=== PATIENT | female | born 1960 | race Caucasian/White ===

== ENCOUNTER 2016-08-24 16:58 | Emergency (ER) | payer BC, OTHER ==
[~2016-08-24 16:58] MED LIST: AMBI10TA PO; AMIT25TA PO; CO Q PO; DULE200A IN; LEVOTAB10 PO; METO25TAB PO; SIMV20TA2 PO; VITMTA PO
[2016-08-24] MEDS ORDERED: HYDROmorphone HCL 1 MG/ML SYRINGE (J1170) As Ordered ONE (18:39)
[2016-08-24] MEDS ORDERED: methylPREDNISolone INJ 125 MG/2 ML VIAL (J2930) As Ordered ONE (18:40)
[2016-08-24] MEDS ORDERED: METHOCARBAMOL 500 MG TAB As Ordered ONE ×2 (18:40→21:00)
[2016-08-24] MEDS ORDERED: ONDANSETRON 4MG/2ML VIAL (J2405) As Ordered ONE (18:47)
--- NOTE | 2016-08-24 20:20 | REPUSA ---
CLINICAL HISTORY: Back pain. TECHNIQUE: Fast spin echo T2 and spin echo T1 sequences were obtained in axial and sagittal planes. FINDINGS: The visualized osseous elements are intact with no evidence of fracture or spondylolisthesis. The mar row signals are within normal limits. There is straightening of normal lordotic curvature, compatible with muscle spasm. The conus medullaris and cauda equina are within normal limits. There is evidence of mild multilevel disc dehydration. Evaluation of individual levels reveals the following: At L5-S1, broad based disk bulge is present. Canal and neural foramina remain patent. At L4-L5, broad based disk bulge is present. Canal and neural foramina are mildly narrowed. Hypertro phic facet disease and ligamentum hypertrophy contribute. At L3-L4, there is no disk herniation or bulge. Canal and neural foramina are mildly narrowed. Hyper trophic facet disease and ligamentum hypertrophy contribute. At L2-L3, there is no disk herniation or bulge. Canal and neural foramina remain patent. At L1-L2, there is no disk herniation or bulge. Canal and neural foramina remain patent. IMPRESSION: 1. Straightening of normal lordotic curvature, compatible with muscle spasm. 2. At L5-S1, broad based disk bulge is present. Canal and neural foramina remain patent. 3. At L4-L5, broad based disk bulge is present. Canal and neural foramina are mildly narrowed. Hyper trophic facet disease and ligamentum hypertrophy contribute. 4. At L3-L4, there is no disk herniation or bulge. Canal and neural foramina are mildly narrowed. Hy pertrophic facet disease and ligamentum hypertrophy contribute. Thank you for your kind referral of this patient.
--- NOTE | 2016-08-24 21:08 | EDDOCDS ---
Physician Documentation [facility] Name: Radha Olmos Age: 56 yrs Sex: Female : 1960 Arrival Date: 08/24/2016 Time: 16:58 Bed I6 / 28 Private MD: Porter Mcneil P. Disposition: 08/24/16 20:57 Discharged to Home/Self Care. Impression: Intervertebral disc disorders with myelopathy, lumbar region. - Condition is Stable. - Discharge Instructions: Herniated Disk. - Prescriptions for Medrol (Nawaf) 4 mg Oral Tablets, Dose Pack - take 1 Pack by ORAL route as directed - follow package instructions; 1 packet. Robaxin 500 mg Oral Tablet - take 2 tablet by ORAL route every 6 hours As needed; 40 tablet. - Medication Reconciliation, Local Pharmacy Hours form. - Follow up: Mayo Ng; When: 2 - 3 days; Reason: Recheck today's complaints, Continuance of care. - Problem is new. - Symptoms have improved. - Notes: CONTINUE WITH ROBAXIN AND OXYCODONE AT HOME, STOP FLEXERIL,USE MEDROL INSTRUCTED, FOLLOW UP WITH DR NG, RETURN TO THE ER IF THE SYMPTOMS WORSEN OR BECOME CONCERNING Historical: - Allergies: Codeine Sulfate; NSAIDS; PENICILLINS; Demerol; Mevacor; Chantix; Wellbutrin; - Home Meds: 1. amitriptyline 25 mg Oral tab 1 tab once daily 2. Flexeril 10 mg Oral tab 1 tab as needed 3. Lopressor 50 mg Oral tab once daily 4. simvastatin 20 mg Oral tab 1 tab once daily 5. levocetirizine 5 mg oral tab 1 tab once daily 6. 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 No barriers to communication noted, The patient speaks fluent Ukrainian, Speaks appropriately for age. - Family history: Not pertinent. - : The pt / caregiver states he / she is not on anticoagulants. Home medication list is obtained from the patient. - Exposure Risk Screening:: None identified. COPY MESSENGER: 08/24 17:12 LMP N/A - Post-menopause kc3 Vital Signs: 17:00 BP 146 / 89; Pulse 82; Resp 18; Temp 97.2(O); Pulse Ox 100% on R/A; Weight 66.68 kg / lr2 147 lbs (R); Height 5 ft. 9 in. (175.26 cm) (R); Pain 8/10; 19:13 BP 171 / 81; Pulse 85; Resp 16; Pulse Ox 99% ; ajs 20:58 BP 144 / 80; Pulse 85; Resp 18; Temp 97.8; Pulse Ox 98% ; Pain 7/10; ajs 17:00 Body Mass Index 21.71 (66.68 kg, 175.26 cm) lr2 MDM: 18:19 IV Saline Lock ordered. ck7 18:19 Dilaudid - HYDROmorphone 1 mg IVP once ordered. ck7 18:19 Methocarbamol 1 grams PO once ordered. ck7 18:19 Solu-MEDROL 125 mg IVP once ordered. ck7 18:19 MRI Screening Tool - Place on chart, inform RN ordered. ck7 18:20 -MRI-Spine, Lumbar without contrast Ordered. EDMS 18:26 MRI Screening Tool - Place on chart, inform RN complete. dem1 18:46 Ondansetron 4 mg IVP once ordered. [facility] 18:53 Financial registration complete. ks16 19:09 [facility] Payment Agreement was scanned into [employer] and attached to record. ks16 20:56 Methocarbamol 1 grams PO once; DISPENSE TO GO HOME WITH ordered. ck7 20:58 ED course: PATIENT OFFERED RECTAL EXAM TO ASSESS RECTAL TONE, PT REFUSED, STATES SHE ck7 DOES NOT HAVE ANY PROBLEMS WITH HER RECTUM, MAIKEL WILBURN FILM CLEANER PRESENT WHEN PATIENT REFUSED RECTAL EXAM. Administered Medications: 18:58 Drug: Dilaudid - HYDROmorphone 1 mg [hydromorphone 1 mg/mL injection syringe (1 mL)] [facility] Route: IVP; Site: left antecubital; 18:58 Drug: Methocarbamol 1 grams [methocarbamol 500 mg tablet (2 tabs)] Route: PO; [facility] 18:58 Drug: Solu-MEDROL 125 mg [Solu-Medrol 500 mg intravenous solution (125 mg)] Route: IVP; [facility] Site: left antecubital; 18:58 Drug: Ondansetron 4 mg Route: IVP; Site: left antecubital; [facility] 20:55 CANCELLED (Other Intervention Used): Diazepam 2 mg IVP once :55 CANCELLED (Patient Refused; PT STATES THAT SHE HAS THE MEDICATION AT HOME): oxyCODONE-acetaminophen 5 mg-325 mg 1 tabs PO once 21:04 Drug: Methocarbamol 1 grams [methocarbamol 500 mg tablet (2 tabs)] Route: PO; ko2 21:04 Follow up: Response: Med's dispensed home ko2 Signatures: Dispatcher [employer] EDMS Ramy Roxiyoanna [email or web address] Yesi Herring RN RN [facility] Porter Pierce RPA-C RPA-Cck7 Leah Cardenas RN RN ko2 Kathie Redmond RN RN kc3 Shweta Abrams, Reg Reg ks16 The chart was reviewed and I authenticate all verbal orders and agree with the evaluation and treatment provided.Corrections: (The following items were deleted from the chart) 20:55 20:29 Diazepam 2 mg IVP once ordered. 20:55 20:48 oxyCODONE-acetaminophen 5 mg-325 mg 1 tabs PO once ordered. Attachments: 19:09 [facility] Payment Agreement [email or web address] MTDD
--- NOTE | 2016-08-24 21:08 | EDDOCDS ---
Nurse's Notes [facility] Name: Radha Olmos Age: 56 yrs Sex: Female : 1960 Arrival Date: 08/24/2016 Time: 16:58 Bed I6 / 28 Private MD: Porter Mcneil P. Diagnosis: Intervertebral disc disorders with myelopathy, lumbar region Presentation: 08/24 17:05 Presenting complaint: Patient states: lower back pain x 3 days with no relief with kc3 Percocet at home. Acute neurological deficits are not present. Mechanism of Injury: No Mechanism of Injury. Adult Sepsis Screening: The patient does not have new or worsening altered mentation. Patient's respiratory rate is less than 22. Systolic blood pressure is greater than 100. Patient has a qSOFA score of 0- Negative Sepsis Screen. Suicide/Homicide risk assessment- the patient denies having any suicidal and/or homicidal ideations and does not present with any other emotional, behavioral or mental health complaints. 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 Transition of care: patient was not received from another setting of care. 17:05 Acuity: SANTOS Level 4 kc3 17:05 Method Of Arrival: Walkin/Carried/Asstd kc3 Triage Assessment: 17:11 General: Appears in no apparent distress, comfortable. Pain: Location: back Pain kc3 currently is 9 out of 10 on a pain scale. HIV screening NA for this visit Offered previously. Musculoskeletal: Circulation, motion, and sensation intact Reports pain in back. [facility]: 17:12 LMP N/A - Post-menopause kc3 Historical: - Allergies: Codeine Sulfate; NSAIDS; PENICILLINS; Demerol; Mevacor; Chantix; Wellbutrin; - Home Meds: 1. amitriptyline 25 mg Oral tab 1 tab once daily 2. Flexeril 10 mg Oral tab 1 tab as needed 3. Lopressor 50 mg Oral tab once daily 4. simvastatin 20 mg Oral tab 1 tab once daily 5. levocetirizine 5 mg oral tab 1 tab once daily 6. 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 No barriers to communication noted, The patient speaks fluent Guinean, Speaks appropriately for age. - Family history: Not pertinent. - : The pt / caregiver states he / she is not on anticoagulants. Home medication list is obtained from the patient. - Exposure Risk Screening:: None identified. Screenin:59 Screening information is obtained from the patient. Fall risk: No risks identified. cj Assistance ADL's: requires no assistance with activities of daily living. Abuse/DV Screen: The patient / caregiver reports he/she is: not in a situation that causes fear, pain or injury. Nutritional screening: No deficits noted. Advance Directives: There is no active DNR order. home support is adequate. Assessment: 18:59 General: Appears slender, uncomfortable, Behavior is cooperative. Pain: Location: back cjh and pelvis Pain currently is 10 out of 10 on a pain scale. Neurological: Level of Consciousness is awake, alert, Oriented to person, place, time. Respiratory: Airway is patent Respiratory effort is even, unlabored, Respiratory pattern is regular, symmetrical. GI: No deficits noted. Derm: Skin is pink, warm & dry. Musculoskeletal: Range of motion intact in all extremities. 19:20 General: escorted to MRI by ECOMMERCE ANALYST. [facility] 21:04 General: Appears in no apparent distress, Behavior is cooperative. Pain: Location: ko2 back. Neurological: Level of Consciousness is awake, alert, Oriented to person, place, time. Respiratory: Airway is patent Respiratory effort is even, unlabored, Respiratory pattern is regular, symmetrical. Derm: Skin is pink, warm & dry. Vital Signs: 17:00 BP 146 / 89; Pulse 82; Resp 18; Temp 97.2(O); Pulse Ox 100% on R/A; Weight 66.68 kg lr2 (R); Height 5 ft. 9 in. (175.26 cm) (R); Pain 8/10; 19:13 BP 171 / 81; Pulse 85; Resp 16; Pulse Ox 99% ; ajs 20:58 BP 144 / 80; Pulse 85; Resp 18; Temp 97.8; Pulse Ox 98% ; Pain 7/10; ajs 17:00 Body Mass Index 21.71 (66.68 kg, 175.26 cm) lr2 Vitals: 17:00 Log In Time: August 24, 2016 at 16:58. lr2 ED Course: 17:00 Patient visited by Jaci Guevara. lr2 17:00 Patient moved to Waiting lr2 17:01 Porter Mcneil is Private Physician. lr2 17:01 Patient moved to Pre RCE lr2 17:06 Triage Initiated kc3 17:23 Patient moved to Triage 1 mlb1 18:09 [facility] ck7 18:09 Rajan Beth MD is Attending Physician. ck7 18:09 Patient visited by Porter Pierce RPA-C. ck7 18:16 Patient moved to I6 / 28 mlb1 18:39 Patient visited by Porter Pierce RPA-C. ck7 18:59 The patient / caregiver is instructed regarding the plan of care and ED course. Patient [facility] has correct armband on for positive identification. Placed in gown. Bed in low position. Call light in reach. Pulse ox on. 18:59 Inserted saline lock: 20 gauge in left antecubital area. [facility] 19:09 [facility] Payment Agreement was scanned into [employer] and attached to record. ks16 19:14 Patient visited by Lay Pope. ajs 20:04 Patient visited by Porter Pierce RPA-C. ck7 20:06 Patient visited by Lay Pope. ajs 20:36 Patient visited by Porter Pierce RPA-C. ck7 20:55 Notified physician's portfolio assistant of This inspector automatic typewriter accompanied NATHAN Pierce into room to s perform rectal exam. Pt refused to have the rectal exam. 20:56 Patient visited by Lya Pope. ajs 20:57 Mayo Soto is Referral Physician. ck7 20:57 -MRI-Spine, Lumbar without contrast Returned. EDMS 20:59 Patient visited by Lay Pope. ajs 21:05 Discontinued lock intact, bleeding controlled, pressure dressing applied, No ko2 redness/swelling at site. No procedures done that require assistance. Administered Medications: 18:58 Drug: Dilaudid - HYDROmorphone 1 mg [hydromorphone 1 mg/mL injection syringe (1 mL)] [facility] Route: IVP; Site: left antecubital; 18:58 Drug: Methocarbamol 1 grams [methocarbamol 500 mg tablet (2 tabs)] Route: PO; [facility] 18:58 Drug: Solu-MEDROL 125 mg [Solu-Medrol 500 mg intravenous solution (125 mg)] Route: IVP; [facility] Site: left antecubital; 18:58 Drug: Ondansetron 4 mg Route: IVP; Site: left antecubital; [facility] 20:55 CANCELLED (Other Intervention Used): Diazepam 2 mg IVP once ck 20:55 CANCELLED (Patient Refused; PT STATES THAT SHE HAS THE MEDICATION AT HOME): ck7 oxyCODONE-acetaminophen 5 mg-325 mg 1 tabs PO once 21:04 Drug: Methocarbamol 1 grams [methocarbamol 500 mg tablet (2 tabs)] Route: PO; ko2 21:04 Follow up: Response: Med's dispensed home ko2 Order Results: Radiology Order: -MRI-Spine, Lumbar without contrast Test: -MRI-Spine, Lumbar without contrast REASON FOR EXAMINATION: LOW BACK PAIN; ; CLINICAL HISTORY: Back pain.; TECHNIQUE: Fast spin echo T2 and spin echo T1 sequences were obtained in axial and sagittal planes.; FINDINGS:; The visualized osseous elements are intact with no evidence of fracture or spondylolisthesis. The mar; row signals are within normal limits. There is straightening of normal lordotic curvature, compatible; with muscle spasm. The conus medullaris and cauda equina are within normal limits.; There is evidence of mild multilevel disc dehydration.; Evaluation of individual levels reveals the following:; At L5-S1, broad based disk bulge is present. Canal and neural foramina remain patent.; At L4-L5, broad based disk bulge is present. Canal and neural foramina are mildly narrowed. Hypertro; phic facet disease and ligamentum hypertrophy contribute.; At L3-L4, there is no disk herniation or bulge. Canal and neural foramina are mildly narrowed. Hyper; trophic facet disease and ligamentum hypertrophy contribute.; At L2-L3, there is no disk herniation or bulge. Canal and neural foramina remain patent.; At L1-L2, there is no disk herniation or bulge. Canal and neural foramina remain patent.; IMPRESSION:; 1. Straightening of normal lordotic curvature, compatible with muscle spasm.; 2. At L5-S1, broad based disk bulge is present. Canal and neural foramina remain patent.; 3. At L4-L5, broad based disk bulge is present. Canal and neural foramina are mildly narrowed. Hyper; trophic facet disease and ligamentum hypertrophy contribute.; 4. At L3-L4, there is no disk herniation or bulge. Canal and neural foramina are mildly narrowed. Hy; pertrophic facet disease and ligamentum hypertrophy contribute.; Thank you for your kind referral of this patient.; ; Outcome: 20:57 Discharge ordered by Provider. ck7 21:06 Discharge Assessment: Patient awake, alert and oriented x 3. No cognitive and/or ko2 functional deficits noted. Patient verbalized understanding of disposition instructions. patient administered narcotics - no. The following High Risk Discharge criteria are identified: None. Discharged to home ambulatory. Condition: stable. Discharge instructions given to patient, Instructed on discharge instructions, follow up and referral plans. medication usage, Demonstrated understanding of instructions, medications, Pt was receptive of discharge instructions/ teaching. Prescriptions given X 2. MRI Study completed. Property sent home with patient. 21:06 Patient left the ED. ko2 Signatures: Dispatcher [employer] EDIL Ehsan Ryan RN RN mlb1 Lay Pope JaneRN RN cj Porter Pierce, RPA-C RPA-Cck7 Leah Cardenas RN RN ko2 Kathie Redmond RN RN kc3 Shweta Abrams, Reg Reg ks16 Jaci Guevara lr2 Corrections: (The following items were deleted from the chart) 20:06 19:13 BP 171 / ???; Pulse 81bpm; Resp 16bpm; Pulse Ox 99%; ajs vinay MTDD
--- NOTE | 2016-08-26 22:07 | EDDOCDS ---
Physician Documentation [facility] Name: Radha Olmos Age: 56 yrs Sex: Female : 1960 Arrival Date: 08/24/2016 Time: 16:58 Bed I6 / 28 Private MD: Porter Mcneil P. Disposition: 08/24/16 20:57 Discharged to Home/Self Care. Impression: Intervertebral disc disorders with myelopathy, lumbar region. - Condition is Stable. - Discharge Instructions: Herniated Disk. - Prescriptions for Medrol (Nawaf) 4 mg Oral Tablets, Dose Pack - take 1 Pack by ORAL route as directed - follow package instructions; 1 packet. Robaxin 500 mg Oral Tablet - take 2 tablet by ORAL route every 6 hours As needed; 40 tablet. - Medication Reconciliation, Local Pharmacy Hours form. - Follow up: Mayo Ng; When: 2 - 3 days; Reason: Recheck today's complaints, Continuance of care. - Problem is new. - Symptoms have improved. - Notes: CONTINUE WITH ROBAXIN AND OXYCODONE AT HOME, STOP FLEXERIL,USE MEDROL INSTRUCTED, FOLLOW UP WITH DR NG, RETURN TO THE ER IF THE SYMPTOMS WORSEN OR BECOME CONCERNING Historical: - Allergies: Codeine Sulfate; NSAIDS; PENICILLINS; Demerol; Mevacor; Chantix; Wellbutrin; - Home Meds: 1. amitriptyline 25 mg Oral tab 1 tab once daily 2. Flexeril 10 mg Oral tab 1 tab as needed 3. Lopressor 50 mg Oral tab once daily 4. simvastatin 20 mg Oral tab 1 tab once daily 5. levocetirizine 5 mg oral tab 1 tab once daily 6. 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 No barriers to communication noted, The patient speaks fluent Fijian, Speaks appropriately for age. - Family history: Not pertinent. - : The pt / caregiver states he / she is not on anticoagulants. Home medication list is obtained from the patient. - Exposure Risk Screening:: None identified. RE RECORDING MIXER: 08/24 17:12 LMP N/A - Post-menopause kc3 Vital Signs: 17:00 BP 146 / 89; Pulse 82; Resp 18; Temp 97.2(O); Pulse Ox 100% on R/A; Weight 66.68 kg / lr2 147 lbs (R); Height 5 ft. 9 in. (175.26 cm) (R); Pain 8/10; 19:13 BP 171 / 81; Pulse 85; Resp 16; Pulse Ox 99% ; ajs 20:58 BP 144 / 80; Pulse 85; Resp 18; Temp 97.8; Pulse Ox 98% ; Pain 7/10; ajs 17:00 Body Mass Index 21.71 (66.68 kg, 175.26 cm) lr2 MDM: 18:19 IV Saline Lock ordered. ck7 18:19 Dilaudid - HYDROmorphone 1 mg IVP once ordered. ck7 18:19 Methocarbamol 1 grams PO once ordered. ck7 18:19 Solu-MEDROL 125 mg IVP once ordered. ck7 18:19 MRI Screening Tool - Place on chart, inform RN ordered. ck7 18:20 -MRI-Spine, Lumbar without contrast Ordered. EDMS 18:26 MRI Screening Tool - Place on chart, inform RN complete. dem1 18:46 Ondansetron 4 mg IVP once ordered. [facility] 18:53 Financial registration complete. ks16 19:09 [facility] Payment Agreement was scanned into [employer] and attached to record. ks16 20:56 Methocarbamol 1 grams PO once; DISPENSE TO GO HOME WITH ordered. ck7 20:58 ED course: PATIENT OFFERED RECTAL EXAM TO ASSESS RECTAL TONE, PT REFUSED, STATES SHE ck7 DOES NOT HAVE ANY PROBLEMS WITH HER RECTUM, MAIKEL WILBURN SLOTS MANAGER PRESENT WHEN PATIENT REFUSED RECTAL EXAM. 08/25 08:31 T-Sheet-- Draft Copy was scanned into [employer] and attached to record. [facility] Administered Medications: 08/24 18:58 Drug: Dilaudid - HYDROmorphone 1 mg [hydromorphone 1 mg/mL injection syringe (1 mL)] [facility] Route: IVP; Site: left antecubital; 18:58 Drug: Methocarbamol 1 grams [methocarbamol 500 mg tablet (2 tabs)] Route: PO; [facility] 18:58 Drug: Solu-MEDROL 125 mg [Solu-Medrol 500 mg intravenous solution (125 mg)] Route: IVP; [facility] Site: left antecubital; 18:58 Drug: Ondansetron 4 mg Route: IVP; Site: left antecubital; [facility] 20:55 CANCELLED (Other Intervention Used): Diazepam 2 mg IVP once 20:55 CANCELLED (Patient Refused; PT STATES THAT SHE HAS THE MEDICATION AT HOME): 7 oxyCODONE-acetaminophen 5 mg-325 mg 1 tabs PO once 21:04 Drug: Methocarbamol 1 grams [methocarbamol 500 mg tablet (2 tabs)] Route: PO; ko2 21:04 Follow up: Response: Med's dispensed home ko2 Signatures: Dispatcher [employer] EDMS Chad Mccann Jane, RN RN [facility] Porter Pierce, ELIGIO-C RPA-Cck7 Leah Cardenas RN RN ko2 Kathie Redmond RN RN kc3 Shweta Abrams, Reg Reg oh16 [facility] The chart was reviewed and I authenticate all verbal orders and agree with the evaluation and treatment provided.Corrections: (The following items were deleted from the chart) 20:55 20:29 Diazepam 2 mg IVP once ordered. 20:55 20:48 oxyCODONE-acetaminophen 5 mg-325 mg 1 tabs PO once ordered. 7 7 Attachments: 19:09 [facility] Payment Agreement [email or web address] 08/25 08:31 T-Sheet-- Draft Copy [facility] Chart Complete MTDD
--- NOTE | 2016-08-26 22:07 | EDDOCDS ---
Nurse's Notes [facility] Name: Radha Olmos Age: 56 yrs Sex: Female : 1960 Arrival Date: 08/24/2016 Time: 16:58 Bed I6 / 28 Private MD: Porter Mcneil P. Diagnosis: Intervertebral disc disorders with myelopathy, lumbar region Presentation: 08/24 17:05 Presenting complaint: Patient states: lower back pain x 3 days with no relief with kc3 Percocet at home. Acute neurological deficits are not present. Mechanism of Injury: No Mechanism of Injury. Adult Sepsis Screening: The patient does not have new or worsening altered mentation. Patient's respiratory rate is less than 22. Systolic blood pressure is greater than 100. Patient has a qSOFA score of 0- Negative Sepsis Screen. Suicide/Homicide risk assessment- the patient denies having any suicidal and/or homicidal ideations and does not present with any other emotional, behavioral or mental health complaints. Status: Patient is not a dietary service aide or dependent. Transition of care: patient was not received from another setting of care. 17:05 Acuity: SANTOS Level 4 kc3 17:05 Method Of Arrival: Walkin/Carried/Asstd kc3 Triage Assessment: 17:11 General: Appears in no apparent distress, comfortable. Pain: Location: back Pain kc3 currently is 9 out of 10 on a pain scale. HIV screening NA for this visit Offered previously. Musculoskeletal: Circulation, motion, and sensation intact Reports pain in back. 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 amitriptyline 25 mg Oral tab 1 tab once daily 2. Flexeril 10 mg Oral tab 1 tab as needed 3. Lopressor 50 mg Oral tab once daily 4. simvastatin 20 mg Oral tab 1 tab once daily 5. levocetirizine 5 mg oral tab 1 tab once daily 6. 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 No barriers to communication noted, The patient speaks fluent Chinese, Speaks appropriately for age. - Family history: Not pertinent. - : The pt / caregiver states he / she is not on anticoagulants. Home medication list is obtained from the patient. - Exposure Risk Screening:: None identified. Screenin:59 Screening information is obtained from the patient. Fall risk: No risks identified. cj Assistance ADL's: requires no assistance with activities of daily living. Abuse/DV Screen: The patient / caregiver reports he/she is: not in a situation that causes fear, pain or injury. Nutritional screening: No deficits noted. Advance Directives: There is no active DNR order. home support is adequate. Assessment: 18:59 General: Appears slender, uncomfortable, Behavior is cooperative. Pain: Location: back cjh and pelvis Pain currently is 10 out of 10 on a pain scale. Neurological: Level of Consciousness is awake, alert, Oriented to person, place, time. Respiratory: Airway is patent Respiratory effort is even, unlabored, Respiratory pattern is regular, symmetrical. GI: No deficits noted. Derm: Skin is pink, warm & dry. Musculoskeletal: Range of motion intact in all extremities. 19:20 General: escorted to MRI by COLOR STRIPPER. [facility] 21:04 General: Appears in no apparent distress, Behavior is cooperative. Pain: Location: ko2 back. Neurological: Level of Consciousness is awake, alert, Oriented to person, place, time. Respiratory: Airway is patent Respiratory effort is even, unlabored, Respiratory pattern is regular, symmetrical. Derm: Skin is pink, warm & dry. Vital Signs: 17:00 BP 146 / 89; Pulse 82; Resp 18; Temp 97.2(O); Pulse Ox 100% on R/A; Weight 66.68 kg lr2 (R); Height 5 ft. 9 in. (175.26 cm) (R); Pain 8/10; 19:13 BP 171 / 81; Pulse 85; Resp 16; Pulse Ox 99% ; ajs 20:58 BP 144 / 80; Pulse 85; Resp 18; Temp 97.8; Pulse Ox 98% ; Pain 7/10; ajs 17:00 Body Mass Index 21.71 (66.68 kg, 175.26 cm) lr2 Vitals: 17:00 Log In Time: August 24, 2016 at 16:58. lr2 ED Course: 17:00 Patient visited by Jaci Guevara. lr2 17:00 Patient moved to Waiting lr2 17:01 Porter Mcneil is Private Physician. lr2 17:01 Patient moved to Pre RCE lr2 17:06 Triage Initiated kc3 17:23 Patient moved to Triage 1 mlb1 18:09 Porter Pierce RPA-C is PHCP. ck7 18:09 Rajan Beth MD is Attending Physician. ck7 18:09 Patient visited by Porter Pierce RPA-C. ck7 18:16 Patient moved to I6 / 28 mlb1 18:39 Patient visited by Porter Pierce RPA-C. ck7 18:59 The patient / caregiver is instructed regarding the plan of care and ED course. Patient [facility] has correct armband on for positive identification. Placed in gown. Bed in low position. Call light in reach. Pulse ox on. 18:59 Inserted saline lock: 20 gauge in left antecubital area. [facility] 19:09 [facility] Payment Agreement was scanned into [employer] and attached to record. ks16 19:14 Patient visited by Lay Pope. ajs 20:04 Patient visited by Porter Pierce RPA-C. ck7 20:06 Patient visited by Lay Pope. ajs 20:36 Patient visited by Porter Pierce RPA-C. ck7 20:55 Notified physician's retail store assistant of This automatic typewriter inspector accompanied NATHAN Pierce into room to s perform rectal exam. Pt refused to have the rectal exam. 20:56 Patient visited by Lay Pope. ajs 20:57 Mayo Soto is Referral Physician. ck7 20:57 -MRI-Spine, Lumbar without contrast Returned. EDMS 20:59 Patient visited by Lay Pope. ajs 21:05 Discontinued lock intact, bleeding controlled, pressure dressing applied, No ko2 redness/swelling at site. No procedures done that require assistance. 08/25 08:31 T-Sheet-- Draft Copy was scanned into [employer] and attached to record. seh Administered Medications: 08/24 18:58 Drug: Dilaudid - HYDROmorphone 1 mg [hydromorphone 1 mg/mL injection syringe (1 mL)] [facility] Route: IVP; Site: left antecubital; 18:58 Drug: Methocarbamol 1 grams [methocarbamol 500 mg tablet (2 tabs)] Route: PO; [facility] 18:58 Drug: Solu-MEDROL 125 mg [Solu-Medrol 500 mg intravenous solution (125 mg)] Route: IVP; [facility] Site: left antecubital; 18:58 Drug: Ondansetron 4 mg Route: IVP; Site: left antecubital; [facility] 20:55 CANCELLED (Other Intervention Used): Diazepam 2 mg IVP once ck7 20:55 CANCELLED (Patient Refused; PT STATES THAT SHE HAS THE MEDICATION AT HOME): ck7 oxyCODONE-acetaminophen 5 mg-325 mg 1 tabs PO once 21:04 Drug: Methocarbamol 1 grams [methocarbamol 500 mg tablet (2 tabs)] Route: PO; ko2 21:04 Follow up: Response: Med's dispensed home ko2 Order Results: Radiology Order: -MRI-Spine, Lumbar without contrast Test: -MRI-Spine, Lumbar without contrast REASON FOR EXAMINATION: LOW BACK PAIN; ; CLINICAL HISTORY: Back pain.; TECHNIQUE: Fast spin echo T2 and spin echo T1 sequences were obtained in axial and sagittal planes.; FINDINGS:; The visualized osseous elements are intact with no evidence of fracture or spondylolisthesis. The mar; row signals are within normal limits. There is straightening of normal lordotic curvature, compatible; with muscle spasm. The conus medullaris and cauda equina are within normal limits.; There is evidence of mild multilevel disc dehydration.; Evaluation of individual levels reveals the following:; At L5-S1, broad based disk bulge is present. Canal and neural foramina remain patent.; At L4-L5, broad based disk bulge is present. Canal and neural foramina are mildly narrowed. Hypertro; phic facet disease and ligamentum hypertrophy contribute.; At L3-L4, there is no disk herniation or bulge. Canal and neural foramina are mildly narrowed. Hyper; trophic facet disease and ligamentum hypertrophy contribute.; At L2-L3, there is no disk herniation or bulge. Canal and neural foramina remain patent.; At L1-L2, there is no disk herniation or bulge. Canal and neural foramina remain patent.; IMPRESSION:; 1. Straightening of normal lordotic curvature, compatible with muscle spasm.; 2. At L5-S1, broad based disk bulge is present. Canal and neural foramina remain patent.; 3. At L4-L5, broad based disk bulge is present. Canal and neural foramina are mildly narrowed. Hyper; trophic facet disease and ligamentum hypertrophy contribute.; 4. At L3-L4, there is no disk herniation or bulge. Canal and neural foramina are mildly narrowed. Hy; pertrophic facet disease and ligamentum hypertrophy contribute.; Thank you for your kind referral of this patient.; ; Outcome: 20:57 Discharge ordered by Provider. ck7 21:06 Discharge Assessment: Patient awake, alert and oriented x 3. No cognitive and/or ko2 functional deficits noted. Patient verbalized understanding of disposition instructions. patient administered narcotics - no. The following High Risk Discharge criteria are identified: None. Discharged to home ambulatory. Condition: stable. Discharge instructions given to patient, Instructed on discharge instructions, follow up and referral plans. medication usage, Demonstrated understanding of instructions, medications, Pt was receptive of discharge instructions/ teaching. Prescriptions given X 2. MRI Study completed. Property sent home with patient. 21:06 Patient left the ED. ko2 Signatures: Dispatcher [employer] EDNH Ehsan Ryan RN RN mlb1 Lay Pope Jane,RN RN Porter Mueller, RPA-C RPA-Cck7 Leah Cardenas RN RN ko2 Kathie Redmond,YULY RN haylie3 Shweta Abrams, Reg Reg ks16 Neha, Jaci Lopez2 Corrections: (The following items were deleted from the chart) 20:06 19:13 BP 171 / ???; Pulse 81bpm; Resp 16bpm; Pulse Ox 99%; ajs ajandie Chart Complete MTDD
--- NOTE | 2016-08-26 22:07 | EDDOCDS ---
[facility] Name: Radha Olmos Age: 56 yrs Sex: Female : 1960 Arrival Date: 08/24/2016 Time: 16:58 Bed I6 / 28 Private MD: Porter Mcneil P. Disposition: 08/24/16 20:57 Discharged to Home/Self Care. Impression: Intervertebral disc disorders with myelopathy, lumbar region. - Condition is Stable. - Discharge Instructions: Herniated Disk. - Prescriptions for Medrol ([place]awaf) 4 mg Oral Tablets, Dose Pack - take 1 Pack by ORAL route as directed - follow package instructions; 1 packet. Robaxin 500 mg Oral Tablet - take 2 tablet by ORAL route every 6 hours As needed; 40 tablet. - Medication Reconciliation, Local Pharmacy Hours form. - Follow up: Mayo Ng; When: 2 - 3 days; Reason: Recheck today's complaints, Continuance of care. - Problem is new. - Symptoms have improved. - Notes: CONTINUE WITH ROBAXIN AND OXYCODONE AT HOME, STOP FLEXERIL,USE MEDROL INSTRUCTED, FOLLOW UP WITH DR NG, RETURN TO THE ER IF THE SYMPTOMS WORSEN OR BECOME CONCERNING Historical: - Allergies: Codeine Sulfate; NSAIDS; PENICILLINS; Demerol; Mevacor; Chantix; Wellbutrin; - Home Meds: 1. amitriptyline 25 mg Oral tab 1 tab once daily 2. Flexeril 10 mg Oral tab 1 tab as needed 3. Lopressor 50 mg Oral tab once daily 4. simvastatin 20 mg Oral tab 1 tab once daily 5. levocetirizine 5 mg oral tab 1 tab once daily 6. 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 No barriers to communication noted, The patient speaks fluent Malawian, Speaks appropriately for age. - Family history: Not pertinent. - : The pt / caregiver states he / she is not on anticoagulants. Home medication list is obtained from the patient. - Exposure Risk Screening:: None identified. 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 9 in. (175.26 cm) (R); Pain 8/10; 19:13 BP 171 / 81; Pulse 85; Resp 16; Pulse Ox 99% ; ajs 20:58 BP 144 / 80; Pulse 85; Resp 18; Temp 97.8; Pulse Ox 98% ; Pain 7/10; ajs 17:00 Body Mass Index 21.71 (66.68 kg, 175.26 cm) lr2 MDM: 18:19 IV Saline Lock ordered. ck7 18:19 Dilaudid - HYDROmorphone 1 mg IVP once ordered. ck7 18:19 Methocarbamol 1 grams PO once ordered. ck7 18:19 Solu-MEDROL 125 mg IVP once ordered. ck7 18:19 MRI Screening Tool - Place on chart, inform RN ordered. ck7 18:20 -MRI-Spine, Lumbar without contrast Ordered. EDMS 18:26 MRI Screening Tool - Place on chart, inform RN complete. dem1 18:46 Ondansetron 4 mg IVP once ordered. [facility] 18:53 Financial registration complete. ks16 19:09 [facility] Payment Agreement was scanned into [employer] and attached to record. ks16 20:56 Methocarbamol 1 grams PO once; DISPENSE TO GO HOME WITH ordered. ck7 20:58 ED course: PATIENT OFFERED RECTAL EXAM TO ASSESS RECTAL TONE, PT REFUSED, STATES SHE ck7 DOES NOT HAVE ANY PROBLEMS WITH HER RECTUM, MAIKEL WILBURN DIRECTOR OF CASEWORK SERVICES PRESENT WHEN PATIENT REFUSED RECTAL EXAM. 08/25 08:31 T-Sheet-- Draft Copy was scanned into [employer] and attached to record. [facility] Administered Medications: 08/24 18:58 Drug: Dilaudid - HYDROmorphone 1 mg [hydromorphone 1 mg/mL injection syringe (1 mL)] [facility] Route: IVP; Site: left antecubital; 18:58 Drug: Methocarbamol 1 grams [methocarbamol 500 mg tablet (2 tabs)] Route: PO; [facility] 18:58 Drug: Solu-MEDROL 125 mg [Solu-Medrol 500 mg intravenous solution (125 mg)] Route: IVP; [facility] Site: left antecubital; 18:58 Drug: Ondansetron 4 mg Route: IVP; Site: left antecubital; [facility] 20:55 CANCELLED (Other Intervention Used): Diazepam 2 mg IVP once 20:55 CANCELLED (Patient Refused; PT STATES THAT SHE HAS THE MEDICATION AT HOME): 7 oxyCODONE-acetaminophen 5 mg-325 mg 1 tabs PO once 21:04 Drug: Methocarbamol 1 grams [methocarbamol 500 mg tablet (2 tabs)] Route: PO; ko2 21:04 Follow up: Response: Med's dispensed home ko2 Signatures: Dispatcher [employer] EDMS Chad Mccann Jane, RN RN [facility] Porter Pierce, ELIGIO-C RPA-Cck7 Leah Cardenas RN RN ko2 Kathie Redmond RN RN kc3 Shweta Abrams, Reg Reg ky16 [facility] The chart was reviewed and I authenticate all verbal orders and agree with the evaluation and treatment provided.Corrections: (The following items were deleted from the chart) 20:55 20:29 Diazepam 2 mg IVP once ordered. 20:55 20:48 oxyCODONE-acetaminophen 5 mg-325 mg 1 tabs PO once ordered. 7 7 Attachments: 19:09 [facility] Payment Agreement [email or web address] 08/25 08:31 T-Sheet-- Draft Copy [facility] Chart Complete MTDD
== END 2016-08-24 21:06 | disposition home or self-care (01) ==
LOC: M ED 16:58
DX: M54.9 Dorsalgia, unspecified (principal); E78.00 Pure hypercholesterolemia, unspecified; I47.1 Supraventricular tachycardia; M51.27 Other intervertebral disc displacement, lumbosacral region; Z72.0 Tobacco use; Z79.899 Other long term (current) drug therapy; Z88.5 Allergy status to narcotic agent; Z88.6 Allergy status to analgesic agent; Z88.0 Allergy status to penicillin; Z88.8 Allergy status to other drugs, medicaments and biological substances
CPT/HCPCS: 72148; 96374; 96375; 99284; J1170; J2405; J2930

== ENCOUNTER → 2017-03-07 | Outpatient (CLI) | payer BC, OTHER ==
--- NOTE | 2017-03-10 09:04 | REP ---
MRI CERVICAL SPINE WITHOUT CONTRAST, 03/07/2017. Clinical history: Neck pain. Sagittal T1, T2 and STIR images with axial T1 and T2 sequences provided. Normal cervical lordosis is slightly reduced. There is cervical spondylosis greatest at C4-5 through C6-7 with both anterior and posterior osteophytes suggested at C4-5 and C5-6. Spondylosis at C6-7. There is disc space narrowing at those levels but sparing the other cervical levels. Craniocervical junction shows ample subarachnoid space with no cerebellar tonsillar ectopia. Vertebral body heights and marrow signal normal except for some discogenic changes at the endplates at C5-6. At C2-3, there is no significant disc bulge or herniation and no spinal or foraminal stenosis. At C3-4, there is minimal disc bulge not causing any spinal stenosis. Foramina show some loss of perineural fat due to uncinate and facet spurs. At C4-5, there is posterior osteophytic ridging and associated disc bulge markedly thinning the subarachnoid space and causing central canal stenosis with AP canal diameter about 7.7 mm Foraminal encroachment bilaterally, left greater than right. At C5-6, posterior osteophytic ridging with paracentral disc protrusion. The AP canal diameter is only 7.1 mm. There is no subarachnoid space. Foramina encroachment bilaterally and severe due to uncinate and facet spurs. The cord is compressed at the C4-5 and C5-6 levels. At C6-7, broad-based disc bulge flattening ventral thecal sac with minimal cord compression. The AP canal diameter 1.7 mm. Foramina show encroachment bilaterally due to uncinate more than facet spurs. At C7-T1, there is a small central disc protrusion. The subarachnoid space is maintained. Foramina show ample room on the left and some loss of perineural fat without nerve root compression on the right. Impression: 1. Cervical spondylosis from C4-5 through C6-7 with disc bulges and protrusion causing spinal stenosis with some mild cord compression at these levels with foraminal encroachment bilaterally due to uncinate and facet spurs. Less spinal stenosis and foraminal encroachment at C3-4 and C7-T1. The cord shows no syrinx. Signed by Clovis Mullen MD 03/10/2017 03:39 P
== END ==
LOC: M RAD 17:10
PROVIDERS: ATTEND Physician Assistant Surgical
DX: M54.2 Cervicalgia (principal); M47.892 Other spondylosis, cervical region

== ENCOUNTER → 2017-05-06 | Outpatient (CLI) | payer OTHER ==
[~2017-05-06] MED LIST changes: +OXYC1TAB23 PO; +PRIN10TA PO; +PROAAER10 INH; +SOMA350T PO; +XANA0.25 PO
--- NOTE | 2017-05-19 00:28 | ECWPNPC ---
PATIENT NAME: SHERRI BUSH : 1960 GENDER: FEMALE VISIT DATE: 05/06/2017 DISCHARGE DATE: 05/06/17 1529 VISIT LOCKED DATE TIME: PHYSICIAN: CRUZITO CAST RESOURCE: CRUZITO CAST REASON FOR APPOINTMENT 1. LOW BACK AND LEG PAIN HISTORY OF PRESENT ILLNESS FALL RISK SCREENING: SCREENING :NO FALLS IN THE PAST YEAR 57 YEAR OLD FEMALE PATIENT WITH HISTORY OF CHRONIC LOW BACK PAIN. PATIENT DESCRIBES THE PAIN BURNING, SHARP ,STABBING, THROBBING, SHOOTING, WITH A PAIN SCORE OF 8/1-0.. PATIENT STATES THAT SITTING, STANDING, OR WALKING INCREASES THE PAIN THE MOST AT THIS TIME. PATIENT IS CURRENTLY USING SOMA AND PERCOCET PRESCRIBED BY HER PRIMARY CARE DOCTOR THAT SHE USES NEEDED. MRS. BUSH STATES THAT SHE TRIED TO AVOID USING THE MEDICATION MUCH POSSIBLE. PATIENT HAS USED GABAPENTIN IN THE PAST AND REPORTS HAVING A LOT OF ADVERSE SIDE EFFECTS FROM THE MEDICATION. PATIENT STATES THAT SQUATTING SOMETIMES RELIEVES SOME OF THE PATIENT'S PAIN. MRS. BUSH STATES THAT SHE HAS CONSULTED WITH A PHYSICAL THERAPIST AND DOES SOME EXERCISES AT HOME. PATIENT ALSO DOES YOGA TO STAY LIMBER AND TRY TO KEEP THE MUSCLES SPASMS DOWN. PATIENT REPORTS HAVING A NECK SURGERY IN THE FUTURE. PATIENT DENIES UNEXPLAINABLE WEIGHT LOSS, FEVER, CHILLS, NEW CHANGES ON HER URINARY OR BOWEL CONTROL. PAIN SCREENING: PATIENT HAS A COMPLAINT OF ACUTE OR CHRONIC PAIN :YES CURRENT MEDICATIONS TAKING LOPRESSOR 50 MG TABLET 1 TABLET WITH FOOD ORALLY DAILY TAKING PRINIVIL 10 MG TABLET 1 TABLET ORALLY BID TAKING ELAVIL 25 MG TABLET 1 TABLET ORALLY BEFORE BEDTIME TAKING SIMVASTATIN 20 MG TABLET 1 TABLET IN THE EVENING ORALLY BEFORE BEDTIME TAKING LEVOCETIRIZINE DIHYDROCHLORIDE 5 MG TABLET 1 TABLET IN THE EVENING ORALLY BEFORE BEDTIME TAKING CENTRUM SILVER ADULT 50+ - TABLET 1 TAB ORALLY DAILY TAKING XANAX 0.25 MG TABLET 1 TABLET ORALLY @ HS & PRN TAKING SUPER B COMPLEX 1 TAB ORALLY DAILY TAKING COQ-10 100 MG CAPSULE 1 CAPSULE WITH A MEAL ORALLY ONCE A DAY TAKING VITAMIN D3 1000 UNIT CAPSULE 1 CAPSULE ORALLY ONCE A DAY TAKING LUNESTA 2 MG TABLET 1 TABLET IMMEDIATELY BEFORE BEDTIME ORALLY ONCE A DAY TAKING PERCOCET 5-325 MG TABLET 1 TABLET ORALLY EVERY 4 HOURS NEEDED TAKING CARISOPRODOL 350 MG TABLET 1 TABLET NEEDED ORALLY FOUR TIMES A DAY TAKING ALBUTEROL SULFATE HFA 108 (90 BASE) MCG/ACT AEROSOL SOLUTION 2 PUFFS NEEDED INHALATION EVERY 4 HOURS NEEDED TAKING OMEPRAZOLE 40 MG CAPSULE DELAYED RELEASE 1 CAPSULE ORALLY BID PRN TAKING ZANTAC 300 MG TABLET 1 TABLET AT BEDTIME ORALLY BID PRN TAKING TYLENOL 500 MGS 1 TAB ORAL FOUR TIMES DAILY NEEDED TAKING SUDAFED 60 MG TABLET 1 TABLET NEEDED ORALLY EVERY 4 HOURS NEEDED TAKING MUCINEX D MAX STRENGTH 120-1200 MG TABLET EXTENDED RELEASE 12 HOUR 1 TABLET NEEDED ORALLY EVERY 12 HRS TAKING NICOTINE 21 MG/24HR PATCH 24 HOUR 1 PATCH TO SKIN TRANSDERMAL ONCE A DAY DISCONTINUED MELATONIN 3-10 MG TABLET 1 TAB(S) ORALLY QHS, PRN DISCONTINUED VICODIN 5-500 MG (ORTHO) TABLET 1 TABLET NEEDED FOR PAIN ORALLY EVERY 4-6 HRS PRN DISCONTINUED FLEXERIL 10 MG (ORTHO) TABLET 1 TABLET ORALLY THREE TIMES A DAY PRN DISCONTINUED LOPRESSOR 25 MG TABLET 1 TAB(S) ORALLY TWICE A DAY DISCONTINUED COLESTID 5 GM GRANULES 1 ORALLY ONCE A DAY DISCONTINUED LOVAZA 1 GM CAPSULE 2 CAPSULES ORALLY TWICE A DAY DISCONTINUED AMBIEN 10 MG TABLET 1 TAB(S) ORAL QHS PRN DISCONTINUED ZYRTEC 10 MG TABLET CHEWABLE 1 TABLET ORALLY PRN MEDICATION LIST REVIEWED AND RECONCILED WITH THE PATIENT PAST MEDICAL HISTORY HYPERLIPIDEMIA RIGHT KNEE PAIN SECONDARY TO ACL TEAR. SVT HYPERTENSION ASTHMA ALLERGIC RHINITIS STATIN INDUCED HEPATITIS LIVER LACERATION BACK PAIN ALLERGIES PENICILLIN (FOR ALLERGIES USE ONLY): ANAPHYLAXIS: ALLERGY CODEINE PHOSPHATE: ANAPHYLAXIS: ALLERGY TRANSPORT AGENT IN VACCINES: ANAPHYLAXIS: ALLERGY DEMEROL: INCREASED HOSTILITY/AGGRESSION: SIDE EFFECTS MORPHINE: CHEST FELT LIKE A SOLID BLOCK OF ICE: ALLERGY AMOXICILLIN: SEVERE BRONCHIAL SPASM: ALLERGY AUGMENTIN: SEVERE BRONCHIAL SPASM: ALLERGY ERYTHROMYCIN: SEVERE VOMITTING: SIDE EFFECTS CLINDAMYCIN: LIP AND TONGUE SWELLING: ALLERGY CELEBREX: INTESTINAL BLEEDING: SIDE EFFECTS MEVACORE: ELEVATED LIVER ENZYMES: SIDE EFFECTS ASPIRIN: SEVERE GERD: SIDE EFFECTS NSAIDS: SEVERE GERD: SIDE EFFECTS EFFEXOR: SEVERE TREMORS: SIDE EFFECTS WELBUTRIN: SEVERE MORBID THOUGHTS: SIDE EFFECTS BEE/WASP: ANAPHYLAXIS: ALLERGY CHANTIX: SUICIDAL THOUGHTS: SIDE EFFECTS SURGICAL HISTORY UTERINE ABLATION 2007 TONSILLECTOMY/ADENOIDECTOMY WITH BILATERAL EAR SURGERY 4 LIPOMAS REMOVED FROM LEFT CHEST WALL AND BREAST 03/2016 POLYP FOR CERVIX REMOVED 2007 FAMILY HISTORY FATHER: , HTN, CAD, DIAGNOSED WITH HEART DISEASE MOTHER: , DIAGNOSED WITH HYPERTENSION, HEART DISEASE SON(S): SVT PATERNAL GRAND FATHER: PATERNAL GRAND MOTHER: MATERNAL GRAND FATHER: HTN, CAD, CVA MATERNAL GRAND MOTHER: HTN, CAD, CVA MATERNAL UNCLE: DM 1 BROTHER(S) - HEALTHY. 1 SON(S) , 3 DAUGHTER(S) - HEALTHY. NO KNOWN H/O COLON/BREAST/OVARIAN/ENDOMETRIAL CANCERGRANDFATHER--CVAGRANDMOTHER--HEART DISEASEOLDEST HALF BROTHER--CVA. SOCIAL HISTORY GENERAL: TOBACCO USE ARE YOU A:FORMER SMOKER HOW LONG HAS IT BEEN SINCE YOU LAST SMOKED?3-6 MONTHS ALCOHOL SCREENING POINTS0 INTERPRETATIONNEGATIVE RECREATIONAL DRUG USE DENIES. 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 DIET: LOW FAT, LOW CHOLESTEROL. EXERCISE: YOGA, STRETCHING AND OCCASSIONAL HAND WEIGHTS. MARITAL STATUS: . PETS: 1 DOG, 1 CAT. HINDUISM [id number] QUAKER LANGUAGE TANZANIAN. 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 LEARNING BARRIERS / SPECIAL NEEDS BARRIERS TO LEARNING?NO HEARING IMPAIRED?YES VISION IMPAIRED?YES :CORRECTIVE LENSES COGNITIVELY IMPAIRED?NO READINESS TO LEARN?YES LEARNING PREFERENCES?YES :TAPES/VIDEOS, HANDOUTS, DEMONSTRATION/VERBAL INSTRUCTION LEARNING CAPABILITIES PRESENT?YES EMOTIONAL BARRIERS?NO SPECIAL DEVICES?NO PRESIDENT/GM PRODUCTION & LIVE EXPERIENCES NEEDED?NO PAIN CLINIC PFS, CLERGY, PUBLIC HEALTH REFERRALS PFS REFERRAL NEEDED?NO CLERGY REFERRAL NEEDED?NO PUBLIC HEALTH REFERRAL NEEDED?NO HAS THE PATIENT BEEN EDUCATED REGARDING HIS/HER PLAN OF CARE?YES HAS THE PATIENT BEEN EDUCATED REGARDING PAIN, THE RISK FOR PAIN, THE IMPORTANCE OF EFFECTIVE PAIN MANAGEMENT, AND THE PAIN ASSESSMENT PROCESS?YES ADVANCE DIRECTIVES HEALTH CARE PROXY?NO WOULD YOU LIKE MORE INFORMATION?NO DO YOU HAVE A DNR?NO WOULD YOU LIKE MORE INFORMATION?NO LIVING WILL?NO WOULD YOU LIKE MORE INFORMATION?NO POWER OF MARINE ENGINE MECHANIC?NO WOULD YOU LIKE MORE INFORMATION?NO HOUSING: OWNS HOME. DOMESTIC VIOLENCE DO YOU FEEL SAFE IN YOUR ENVIRONMENT?YES HOSPITALIZATION/MAJOR DIAGNOSTIC PROCEDURE NO HOSPITALIZATION HISTORY. REVIEW OF SYSTEMS REVIEWED BY: PROVIDER: CRUZITO CAST MD . CONSTITUTIONAL: ANY CHANGE IN YOUR MEDICAL CONDITION? NO . CHILLS NO . FEVER NO . INFECTION: DO YOU HAVE NEW INFECTIONS? NO . DO YOU HAVE HISTORY OF MRSA? NO . MUSCULOSKELETAL: ANY NEW PATTERNS OF PAIN OR NUMBNESS? NO . SYTEMIC LUPUS NO . GASTROENTEROLOGY: ANY NEW CHANGE IN BOWEL CONTROL? NO . BARRETTS ESOPHAGUS NO . CIRRHOSIS NO . HEPATITIS NO . LIVER FAILURE NO . ACID REFLUX YES . UNEXPLAINED WEIGHT LOSS NO . GENITOURINARY: ANY NEW CHANGE IN BLADDER CONTROL? NO . IS THERE A CHANCE YOU COULD BE ? NO . HEMATOLOGY/LYMPH: DO YOU TAKE ANY BLOOD THINNERS? (FOR EXAMPLE- COUMADIN, PLAVIX, AGGRENOX, PLATEL, PRADAXA, OR XARELTO) NO . WHEN WAS YOUR LAST DOSE? DATE: TIME: . LOW PLATELET COUNT NO . SICKLE CELL DISEASE NO . VON WILLIEBRANDS NO . FACTOR V LEIDEN NO . THALLASEMIA NO . ANEMIA YES, A ADOLESLANT . EASY BRUISING NO . NEUROLOGY: HAVE YOU FALLEN IN THE PAST 6 MONTHS? YES, 2-3 TIMES. LOOSES HER BALANCE AND TRIPS OVER RIGHT FOOT. . ANY NEW EXTREMITY NUMBNESS OR WEAKNESS? NO . HEAD INJURY NO . DEMENTIA NO . CEREBRAL PALSY NO . MULTIPLE SCLEROSIS NO . DIZZINESS NO . HEADACHE NO . STROKES NO . VERTIGO NO . CARDIOLOGY: DO YOU HAVE A PACEMAKER OR DEFIBRILLATOR? NO . ANGINA NO . HEART ATTACK NO . HEART SURGERY NO . CONGESTIVE HEART FAILURE/FLUID OVERLOAD NO . CHEST PAIN NO . HIGH BLOOD PRESSURE ON MEDICATION(S) . IRREGULAR HEART BEAT NO . RESPIRATORY: HAVE YOU BEEN SICK IN THE PAST WEEK? NO . FEVER NO . FLU LIKE SYMPTOMS? NO . CPAP NO . BYPAP NO . ASTHMA YES . EMPHYSEMA NO . CHRONIC LUNG DISEASES NO . SHORTNESS OF BREATH ON EXERTION NO . COUGH NO . SNORING NO . INTEGUMENTARY: DO YOU HAVE ANY RASHES OR OPEN SORES? NO . ALLERGIC/IMMUNO: ARE YOU ALLERGIC TO SHELLFISH OR IV DYE? NO . ANY NEW ALLERGIES? NO . PSYCHIATRIC: DO YOU HAVE THOUGHTS OF HURTING YOURSELF OR SOMEONE ELSE? NO . ARE YOU ABUSED, NEGLECTED, OR IN AN UNSAFE ENVIRONMENT? NO . ENDOCRINOLOGY: ARE YOU DIABETIC? NO . THYROID DISORDER NO . OTHER: DO YOU NEED ANY PRESCRIPTIONS? NO . IF YES, PLEASE LIST: ____ . ANY NEW PROBLEMS WITH YOUR MEDICATIONS? NO . WHEN DID YOU LAST EAT? ____ . WHEN DID YOU LAST DRINK? ____ . WHAT DID YOU LAST DRINK? ____ . NAME OF PERSON DRIVING YOU HOME? ____ . DO YOU HAVE ANY OTHER QUESTIONS OR CONCERNS WANTS TO DISCUSS DCS . VITAL SIGNS WT 150.4 LBS, HT 68", BMI 22.87 INDEX, BP 136/78 MM HG, HR 88 /MIN, RR 16 /MIN, TEMP 98.2 F, OXYGEN SAT % 99%, SAFE IN ENV? (Y/N) Y, NA INITIALS TL 1309, REVIEWED BY: DENNIS. EXAMINATION : PATIENT IS ALERT O X 3 AND COOPERATIVE. ANTALGIC GAIT. LIMPING FROM THE RIGHT LEG. RIGHT LEG IS WEAKER THEN THE LEFT AT EXTENSION AND FLEXION. FAVERE TEST POSITIVE ON THE RIGHT SIDE. LEFT KNEE 3/4 RIGHT KNEE 2/4. WHILE DOING STRAIGHT LEG RAISES PAIN REPORTED PAIN ON THE OUTSIDE OF THE CALF WHEN SETTING THE LEG DOWN. MRI OF THE LUMBAR SPINE DONE ON 08/24/16 SHOWS DISC BULGING L4-L5 AND L5-S1 AND FACET HYPERTROPHY. ASSESSMENTS SACROILIITIS, NOT ELSEWHERE CLASSIFIED - M46.1 (PRIMARY) INTERVERTEBRAL DISC DISORDER WITH RADICULOPATHY OF LUMBAR REGION - M51.16 INTERVERTEBRAL DISC DISORDER WITH RADICULOPATHY OF LUMBOSACRAL REGION - M51.17 ANKYLOSING HYPEROSTOSIS OF LUMBAR REGION - M48.16 ANKYLOSING HYPEROSTOSIS OF LUMBOSACRAL REGION - M48.17 TREATMENT SACROILIITIS, NOT ELSEWHERE CLASSIFIED NOTES: WE DISCUSSED SEVERAL ISSUES WITH MRS. BUSH'S PAIN MANAGEMENT CASE. AT THIS TIME THE PATIENT WILL CONTINUE WIT THE SAME MEDICATION REGIME AT THIS TIME. PATIENT WAS MADE AWARE IF SHE WOULD LIKE MYSELF TO PRESCRIBED MEDICATION I WOULD NEED THE PATIENT'S PRIMARY CARE PHYSICIAN TO CALL ME. WE DISCUSSED SEVERAL INTERVENTIONS THAT MAY AID THE PATIENT IN PAIN. AT THIS TIME THE PATIENT DOES NOT WANT TO MOVE FORWARD WITH INTERVENTIONS AT THIS TIME. DUE TO TYING THEM IN THE PAST AND STATES THAT IT INCREASED HER PAIN. WE DISCUSSED IN DETAIL THE DCS AT THIS TIME. WE DISCUSSED MOVING FORWARD WITH THE NECK SURGERY PRIOR TO THE DCS. PATIENT AGREES WITH THIS PROCESS. PATIENT WILL FOLLOW UP WITH THE VALVE SETTER TO DISCUSS MEDICATIONS., INSTRUCTIONS WERE GIVEN, QUESTIONS WERE ANSWERED, PATIENT REPORTS UNDERSTANDING AND AGREES WITH THE PLAN. I, BRIDGET DOWELL, DOCUMENTED THE ABOVE INFORMATION ACTING A SCRIBE FOR DR. CAST. I HAVE REVIEWED THE ABOVE DOCUMENT, WRITTEN BY BRIDGET ZUÑIGA AND I VERIFY THAT IT IS ACCURATE. PROCEDURE CODES FA211 ESTABILISHED PATIENT [facility] FACILITY CHARGE G8427 DOC MEDS VERIFIED W/PT OR RE G7530 PAIN ASSESS POS TOOL F/U PLAN DOC DISPOSITION & COMMUNICATION FOLLOW UP 3 WEEKS ELECTRONICALLY SIGNED BY CRUZITO CAST MD ON 05/18/2017 AT 08:31 PM EST DISCLAIMER : THIS IS A VISIT SUMMARY EXTRACTED FROM THE [employer] CHART. IT IS NOT A COPY OF THE [employer] PROGRESS NOTE. MANUELD
== END ==
LOC: M PAIN 13:00
PROVIDERS: ATTEND Anesthesiology
DX: G89.29 Other chronic pain (principal); M46.1 Sacroiliitis, not elsewhere classified; M51.16 Intervertebral disc disorders with radiculopathy, lumbar region; M51.17 Intervertebral disc disorders with radiculopathy, lumbosacral region; M48.16 Ankylosing hyperostosis [Forestier], lumbar region; M48.17 Ankylosing hyperostosis [Forestier], lumbosacral region; E78.5 Hyperlipidemia, unspecified; I10 Essential (primary) hypertension; J45.909 Unspecified asthma, uncomplicated; Z79.891 Long term (current) use of opiate analgesic; Z79.899 Other long term (current) drug therapy; Z87.891 Personal history of nicotine dependence; Z88.0 Allergy status to penicillin; Z88.1 Allergy status to other antibiotic agents; Z88.6 Allergy status to analgesic agent; Z88.8 Allergy status to other drugs, medicaments and biological substances; Z91.030 Bee allergy status

== ENCOUNTER 2017-05-15 18:54 | Emergency (ER) | payer OTHER ==
[~2017-05-15] VITALS: Ht 172.7 cm; Wt 65.9 kg
[2017-05-15 18:54] VITALS: BP 135/83
[~2017-05-15 18:54] MED LIST changes: -OXYC1TAB23 PO; -PRIN10TA PO; -PROAAER10 INH; -SOMA350T PO; -XANA0.25 PO
[2017-05-15] MEDS ORDERED: SOMA350T PO (19:11)
[2017-05-15] MEDS ORDERED: XANA0.25 PO (19:11)
[2017-05-15] MEDS ORDERED: PRIN10TA PO (19:11)
[2017-05-15] MEDS ORDERED: OXYC1TAB23 PO (19:11)
[2017-05-15] MEDS ORDERED: PROAAER10 INH (19:11)
== END 2017-05-15 19:18 | disposition left against medical advice (07) ==
LOC: M ED 18:54
DX: Z53.21 Procedure and treatment not carried out due to patient leaving prior to being seen by health care provider (principal)

== ENCOUNTER → 2017-05-26 | Outpatient (REF) | payer OTHER ==
[~2017-05-26] MED LIST changes: +OXYC1TAB23 PO; +PRIN10TA PO; +PROAAER10 INH; +SOMA350T PO; +XANA0.25 PO
[2017-05-26 19:27] LABS: ALBUMIN 4.2 GM/DL (3.2-5.2); ALBUMIN/GLOBULIN RATIO 1.56 (1.00-1.93); ALKALINE PHOSPHATASE 76 U/L (45-117); ALT/SGPT 29 U/L (12-78); ANION GAP 7 MEQ/L (8-16); AST/SGOT 15 U/L (7-37); BILIRUBIN,TOTAL 0.3 MG/DL (0.2-1.0); BLOOD UREA NITROGEN 6 MG/DL (7-18); CALCIUM LEVEL 9.4 MG/DL (8.5-10.1); CARBON DIOXIDE LEVEL 28 MEQ/L (21-32); CHLORIDE LEVEL 103 MEQ/L (98-107); CHOLESTEROL LEVEL 208 MG/DL (<200); CREATININE FOR GFR 0.78 MG/DL (0.55-1.02); GLOMERULAR FILTRATION RATE > 60.0 (>51); GLUCOSE, FASTING 88 MG/DL (70-105); POTASSIUM SERUM 3.9 MEQ/L (3.5-5.1); SODIUM LEVEL 138 MEQ/L (136-145); TOTAL PROTEIN 6.9 GM/DL (6.4-8.2); TRIGLYCERIDES LEVEL 223 MG/DL (<150)
[2017-05-26 19:34] LABS: BASO % 0.4 % (0.0-1.0); EOS # 0.1 10^3/uL (0.0-0.50); EOS % 1.5 % (0.0-3.0); IMMATURE GRANULOCYTE % 0.1 % (0-0); LYMPH # 2.4 10^3/uL (1.5-4.5); LYMPH % 35.5 % (24.0-44.0); MEAN CORPUSCULAR HEMOGLOBIN 30.9 pg (27.0-33.0); MEAN CORPUSCULAR HGB CONC 34.1 g/dl (32.0-36.5); MEAN CORPUSCULAR VOLUME 90.8 fl (80.0-96.0); MONO # 0.4 10^3/uL (0.0-0.8); MONO % 5.6 % (0.0-5.0); NEUTROPHILS # 3.9 10^3/uL (1.8-7.7); NEUTROPHILS % 56.9 % (36.0-66.0); PLATELET COUNT, AUTOMATED 287 10^3/uL (150-450); RED CELL DISTRIBUTION WIDTH 11.8 % (11.5-14.5); WHITE BLOOD COUNT 6.8 10^3/uL (4.0-10.0)
== END ==
LOC: M LABDRAW1 17:02
PROVIDERS: ATTEND Emergency Medicine
DX: Z00.00 Encounter for general adult medical examination without abnormal findings (principal); E55.9 Vitamin D deficiency, unspecified

== ENCOUNTER → 2017-07-15 | Outpatient (CLI) | payer BC, OTHER | LOC: M RAD 16:37 | DX: M48.02 Spinal stenosis, cervical region (principal); G95.9 Disease of spinal cord, unspecified; Z98.1 Arthrodesis status | CPT/HCPCS: 72052 ==

== ENCOUNTER → 2017-08-04 | Outpatient (CLI) | payer BC, OTHER | LOC: M WUC 13:25 | DX: M25.571 Pain in right ankle and joints of right foot (principal) | CPT/HCPCS: 73610 ==

== ENCOUNTER → 2017-08-29 | Outpatient (CLI) | payer BC, OTHER | LOC: M RAD 13:33 | DX: G95.9 Disease of spinal cord, unspecified (principal); M47.812 Spondylosis without myelopathy or radiculopathy, cervical region; Z79.899 Other long term (current) drug therapy | CPT/HCPCS: 72141 ==

== ENCOUNTER → 2017-09-02 | Outpatient (REF) | payer OTHER ==
[2017-09-02 12:39] LABS: ALBUMIN/GLOBULIN RATIO 1.54 (1.00-1.93); ALKALINE PHOSPHATASE 81 U/L (45-117); ALT/SGPT 24 U/L (12-78); ANION GAP 6 MEQ/L (8-16); AST/SGOT 14 U/L (7-37); BILIRUBIN,TOTAL 0.3 MG/DL (0.2-1.0); BLOOD UREA NITROGEN 10 MG/DL (7-18); CALCIUM LEVEL 9.4 MG/DL (8.5-10.1); CARBON DIOXIDE LEVEL 30 MEQ/L (21-32); CHLORIDE LEVEL 104 MEQ/L (98-107); CHOLESTEROL LEVEL 165 MG/DL (<200); CHOLESTEROL RISK RATIO 3.837 (<5); CREATININE FOR GFR 0.68 MG/DL (0.55-1.30); GLOMERULAR FILTRATION RATE > 60.0 (>51); GLUCOSE, FASTING 85 MG/DL (70-100); HDL CHOLESTEROL 43 MG/DL (>40); LDL CHOLESTEROL 82.6 MG/DL (<100); NON-HDL-C 122 MG/DL; SODIUM LEVEL 140 MEQ/L (136-145); TOTAL PROTEIN 6.6 GM/DL (6.4-8.2); TRIGLYCERIDES LEVEL 197 MG/DL (<150)
== END ==
LOC: M LABDRAW1 11:39
DX: E78.2 Mixed hyperlipidemia (principal); I10 Essential (primary) hypertension

== ENCOUNTER → 2018-01-15 | Outpatient (CLI) | payer BC, OTHER | LOC: M RAD 07:01 | DX: M48.02 Spinal stenosis, cervical region (principal); M47.892 Other spondylosis, cervical region; M50.223 Other cervical disc displacement at C6-C7 level; M50.23 Other cervical disc displacement, cervicothoracic region | CPT/HCPCS: 72141 ==

== ENCOUNTER → 2018-02-06 | Outpatient (CLI) | payer BC, OTHER ==
[2018-02-06 17:29] LABS: BASO % 0.5 % (0.0-1.0); EOS # 0.1 10^3/uL (0.0-0.50); EOS % 1.8 % (0.0-3.0); HEMOGLOBIN 13.8 g/dl (12.0-15.5); IMMATURE GRANULOCYTE % 0.3 % (0-3.0); LYMPH # 2.9 10^3/uL (1.5-4.5); LYMPH % 39.3 % (24.0-44.0); MEAN CORPUSCULAR HEMOGLOBIN 30.9 pg (27.0-33.0); MEAN CORPUSCULAR HGB CONC 33.7 g/dl (32.0-36.5); MEAN CORPUSCULAR VOLUME 91.9 fl (80.0-96.0); MONO # 0.5 10^3/uL (0.0-0.8); MONO % 6.4 % (0.0-5.0); NEUTROPHILS # 3.8 10^3/uL (1.8-7.7); NEUTROPHILS % 51.7 % (36.0-66.0); PLATELET COUNT, AUTOMATED 242 10^3/uL (150-450); RED BLOOD COUNT 4.46 10^6/uL (4.00-5.40); RED CELL DISTRIBUTION WIDTH 12.6 % (11.5-14.5); WHITE BLOOD COUNT 7.3 10^3/uL (4.0-10.0)
[2018-02-06 18:03] LABS: ALBUMIN 3.9 GM/DL (3.2-5.2); ALBUMIN/GLOBULIN RATIO 1.39 (1.00-1.93); ALKALINE PHOSPHATASE 89 U/L (45-117); ALT/SGPT 27 U/L (12-78); ANION GAP 8 MEQ/L (8-16); AST/SGOT 17 U/L (7-37); BILIRUBIN,TOTAL 0.2 MG/DL (0.2-1.0); BLOOD UREA NITROGEN 7 MG/DL (7-18); CALCIUM LEVEL 9.2 MG/DL (8.5-10.1); CARBON DIOXIDE LEVEL 29 MEQ/L (21-32); CHLORIDE LEVEL 102 MEQ/L (98-107); CHOLESTEROL LEVEL 140 MG/DL (<200); CHOLESTEROL RISK RATIO 2.857 (<5); CREATININE FOR GFR 0.76 MG/DL (0.55-1.30); FREE T3 2.5 PG/ML (2.2-4.0); FREE T4 0.89 NG/DL (0.76-1.46); GLOMERULAR FILTRATION RATE > 60.0 (>51); GLUCOSE, FASTING 84 MG/DL (70-100); HDL CHOLESTEROL 49 MG/DL (>40); NON-HDL-C 91 MG/DL; POTASSIUM SERUM 4.1 MEQ/L (3.5-5.1); SODIUM LEVEL 139 MEQ/L (136-145); THYROID STIMULATING HORMONE 0.584 uIU/ML (0.358-3.740); TOTAL PROTEIN 6.7 GM/DL (6.4-8.2); TRIGLYCERIDES LEVEL 190 MG/DL (<150)
[2018-02-06 18:04] LABS: THYROGLOBULIN ANTIBODY 35.7 U/ML (<60.0); THYROID PEROXIDASE ANTIBODY 33.5 U/ML (<60.0)
== END ==
LOC: M LAB 16:38
DX: R53.83 Other fatigue (principal); E78.5 Hyperlipidemia, unspecified; Z12.11 Encounter for screening for malignant neoplasm of colon
CPT/HCPCS: 84443

== ENCOUNTER → 2018-02-19 | Outpatient (CLI) | payer BC, OTHER | LOC: M WUC 15:58 | DX: R05 Cough (principal); R50.9 Fever, unspecified; J84.10 Pulmonary fibrosis, unspecified | CPT/HCPCS: 71046 ==

== ENCOUNTER 2018-06-15 18:46 | Emergency (ER) | payer BC, OTHER | END 2018-06-16 01:05 | disposition home or self-care (01) | LOC: M ED 06-16 01:05 | DX: R20.0 Anesthesia of skin (principal); G89.29 Other chronic pain; M54.2 Cervicalgia; M54.5 Low back pain; I10 Essential (primary) hypertension; J45.909 Unspecified asthma, uncomplicated; K21.9 Gastro-esophageal reflux disease without esophagitis; E78.5 Hyperlipidemia, unspecified; Z79.899 Other long term (current) drug therapy; Z88.0 Allergy status to penicillin; Z88.1 Allergy status to other antibiotic agents; Z88.5 Allergy status to narcotic agent; Z88.8 Allergy status to other drugs, medicaments and biological substances; Z91.030 Bee allergy status; F17.201 Nicotine dependence, unspecified, in remission | CPT/HCPCS: 72141 ==

== ENCOUNTER → 2018-07-14 | Outpatient (CLI) | payer BC, OTHER ==
[~2018-07-14] MED LIST changes: +LYRI150C
--- NOTE | 2018-07-14 15:18 | REP ---
CT CERVICAL SPINE WITHOUT CONTRAST: HISTORY: Disc degeneration. COMPARISON: 08/29/2017. The patient is status post C4-6 anterior spinal fusion. A fixation plate and bone graft material are present. A disc bulge is present at the C3-4 level. Posterior osteophytes are present at the C4-5 and C5-6 levels. A disc bulge with associated osteophyte formation is present at the C6-7 level. There is minimal narrowing of the spinal canal. Uncinate process and/or facet hypertrophy are present at the C4-5 through C7-T1 levels. These findings produce minimal to moderate narrowing of the neural foramina. The C6-7 intervertebral disc is decreased in height consistent with disc degeneration. There is no subluxation. IMPRESSION: 1. The patient is status post C4-6 anterior spinal fusion. There is anatomic alignment. 2. There is cervical spondylosis at the C3-4 through C7-T1 levels. The posterior osteophytes at the C4-5 level is a new finding. Electronically Signed by Sami Patel MD 07/14/2018 03:19 P
== END ==
LOC: M RAD 13:12
PROVIDERS: ATTEND Neurological Surgery
DX: M50.30 Other cervical disc degeneration, unspecified cervical region (principal); M47.892 Other spondylosis, cervical region; Z98.1 Arthrodesis status

== ENCOUNTER → 2018-11-16 | Outpatient (REF) | payer BC, OTHER ==
[~2018-11-16] MED LIST changes: +METO1TAB63 PO; -METO25TAB PO
== END ==
LOC: M LAB REF 19:27
PROVIDERS: ATTEND Physician Assistant
DX: R30.0 Dysuria (principal)

== ENCOUNTER → 2019-01-23 | Outpatient (CLI) | payer BC, OTHER ==
--- NOTE | 2019-01-23 14:19 | REPVR ---
EXAM: MR Lumbar Spine Without Contrast. EXAM DATE/TIME: 01/23/2019 11:42 AM CLINICAL HISTORY: 59 years old, female; Low back pain; Additional info: Diplopia, low back pain TECHNIQUE: Imaging protocol: Multiplanar magnetic resonance images of the lumbar spine without intravenous contrast. COMPARISON: MRI-Spine, L.S. without con 06/15/2018 10:07 PM FINDINGS: Vertebrae: Unremarkable. Grade 1 spondylolisthesis at L4-5 with 4.1 mm of retrolisthesis of L5 with respect to L4. Mild loss of normal signal within the disc on the T2-weighted sequences and L4-5 reflecting disc desiccation. Spinal cord: Conus located posterior to L1. No signal abnormalities in the visualized portion of the conus.. No cord compression. L1-L2: No significant disc disease. No significant spinal stenosis. L2-L3: No significant disc disease. No significant spinal stenosis. L3-L4: Circumferential annulus bulge. Mild hypertrophic facet arthropathy mild narrowing of the lateral recesses bilaterally.. No significant spinal stenosis. L4-L5: Circumferential annulus bulge with moderately advanced hypertrophic facet arthropathy and ligamentous hypertrophy. Fluid noted within the facet joint on the right. Narrowed lateral recesses bilaterally right greater than left.. Borderline mild central stenosis. L5-S1: No significant disc disease. Moderate hypertrophic facet arthropathy bilaterally, right greater than left. No significant spinal stenosis. Soft tissues: Unremarkable. IMPRESSION: Degenerative disc disease and facet arthropathy unchanged from previous examination. Electronically signed by: Estefanía Nelson On 01/23/2019 14:18:57 PM
--- NOTE | 2019-01-23 14:22 | REPVR ---
EXAM: MR Head Without Contrast EXAM DATE/TIME: 01/23/2019 11:42 AM CLINICAL HISTORY: 59 years old, female; Visual disturbance; Additional info: Diplopia, low back pain TECHNIQUE: Imaging protocol: MR of the head without contrast. COMPARISON: No relevant prior studies available. FINDINGS: The diffusion weighted images demonstrate no evidence for acute infarct. The ventricles and sulci are normal in configuration. The cerebellar tonsils are normal in position. The major intracranial vascular flow voids appear grossly patent. There is very mild increased signal in the periventricular white matter bilaterally. No significant white matter signal abnormality elsewhere. No intracranial hemorrhage or extraaxial collection is identified. There is no significant intracranial mass effect, and no mass is identified. The visualized orbits appear grossly unremarkable. There is increased T2 signal in the right mastoid air cells. Mild chronic mucosal disease involves some ethmoid air cells and the maxillary sinuses. IMPRESSION: 1. No acute intracranial abnormality. 2. Very mild increased signal in the periventricular white matter bilaterally, most suggestive of chronic microvascular ischemic disease in a patient of this age. 3. Increased signal in the right mastoid air cells, of indeterminate chronicity and significance. Electronically signed by: Ehsan Frias On 01/23/2019 14:21:39 PM
[2019-01-28 14:08] LABS: Lyme Disease IgG Ab 18 kDa Ban Present (.); Lyme Disease IgG Ab 23 kDa Ban Present (.); Lyme Disease IgG Ab 28 kDa Ban Absent (.); Lyme Disease IgG Ab 30 kDa Ban Absent (.); Lyme Disease IgG Ab 39 kDa Ban Present (.); Lyme Disease IgG Ab 41 kDa Ban Present (.); Lyme Disease IgG Ab 45 kDa Ban Absent (.); Lyme Disease IgG Ab 58 kDa Ban Absent (.); Lyme Disease IgG Ab 66 kDa Ban Absent (.); Lyme Disease IgG Ab 93 kDa Ban Present (.); Lyme Disease IgG West Blot Int Positive (.); Lyme Disease IgG/IgM Antibodie <0.91 ISR (0.00-0.90); Lyme Disease IgM Ab 23 kDa Ban Absent (.); Lyme Disease IgM Ab 39 kDa Ban Absent (.); Lyme Disease IgM Ab 41 kDa Ban Present (.); Lyme Disease IgM Ab Quantitati 0.87 index (0.00-0.79); Lyme Disease IgM West Blot Int Negative (.); VITAMIN B6,PYRIDOXAL PHOSPHATE 70.2 ug/L (2.0-32.8)
== END ==
LOC: M LAB 10:33 → M RAD 10:33
PROVIDERS: ATTEND Psychiatry & Neurology Neurology
DX: R20.2 Paresthesia of skin (principal); H53.2 Diplopia; M43.16 Spondylolisthesis, lumbar region

== ENCOUNTER 2019-03-21 14:27 | Observation (INO) | payer BC, OTHER ==
[~2019-03-21] VITALS: Ht 170.2 cm; Wt 65.0 kg
[~2019-03-21 14:27] MED LIST changes: -LYRI150C; +LYRI150C PO
[2019-03-21] MEDS ORDERED: VITA1CAP14 PO (14:51)
[2019-03-21] MEDS ORDERED: B-COTAB10 PO (14:51)
[2019-03-21] MEDS ORDERED: ESZO1TAB39 PO (14:51)
[2019-03-21] MEDS ORDERED: ALBUTEROL SULFATE 2.5 MG/0.5 ML INH NEB SOLN INH ONE (15:45)
[2019-03-21] MEDS ORDERED: IPRATROPIUM 0.5MG/ALBUTEROL 2.5MG INH SOL UD 3ML (DUONEB)(J7620) NEB ONE (15:45)
[2019-03-21 16:24] LABS: BASO % 0.3 % (0.0-1.0); EOS # 0.1 10^3/uL (0.0-0.5); EOS % 1.5 % (0.0-3.0); HEMATOCRIT 37.1 % (36.0-47.0); HEMOGLOBIN 13.2 g/dl (12.0-15.5); LYMPH # 3.5 10^3/uL (1.5-5.0); LYMPH % 46.2 % (24.0-44.0); MEAN CORPUSCULAR HEMOGLOBIN 31.4 pg (27.0-33.0); MEAN CORPUSCULAR HGB CONC 35.6 g/dl (32.0-36.5); MEAN CORPUSCULAR VOLUME 88.1 fl (80.0-96.0); MONO # 0.5 10^3/uL (0.0-0.8); MONO % 6.7 % (0.0-5.0); NEUTROPHILS # 3.4 10^3/uL (1.5-8.5); PLATELET COUNT, AUTOMATED 217 10^3/uL (150-450); RED BLOOD COUNT 4.21 10^6/uL (4.00-5.40); WHITE BLOOD COUNT 7.5 10^3/uL (4.0-10.0)
[2019-03-21 16:44] LABS: ERYTHROCYTE SEDIMENTATION RATE 4 mm/hr (0-30)
[2019-03-21 16:45] LABS: ALBUMIN 3.8 GM/DL (3.2-5.2); ALT/SGPT 31 U/L (12-78); BILIRUBIN,TOTAL 0.3 MG/DL (0.2-1.0); BLOOD UREA NITROGEN 6 MG/DL (7-18); C REACTIVE PROTEIN QUANTITATIV 0.64 MG/DL (0.00-0.30); CALCIUM LEVEL 9.2 MG/DL (8.5-10.1); CARBON DIOXIDE LEVEL 26 MEQ/L (21-32); CHLORIDE LEVEL 92 MEQ/L (98-107); CREATININE FOR GFR 0.74 MG/DL (0.55-1.30); GLOMERULAR FILTRATION RATE > 60.0 (>51); GLUCOSE, FASTING 95 MG/DL (70-100); POTASSIUM SERUM 3.8 MEQ/L (3.5-5.1); SODIUM LEVEL 127 MEQ/L (136-145); TOTAL PROTEIN 6.2 GM/DL (6.4-8.2)
[2019-03-21] MEDS ORDERED: PERCOCET 5MG/325MG TAB PO ONE (16:45)
[2019-03-21] MEDS ORDERED: ONDANSETRON 4MG/2ML VIAL (J2405) IV ONE (16:45)
[2019-03-21] MEDS ORDERED: diphenhydrAMINE INJ 50MG/ML VIAL (J1200) IV ONE (19:00)
[2019-03-21] MEDS ORDERED: cefTRIAXone SOD 2 GM in D5W MINI-BAG PLUS 50 ML IV ONE (19:00)
[2019-03-21] MEDS ORDERED: MOM 30ML SUSPENSION UDC PO PRN (20:15)
[2019-03-21] MEDS ORDERED: MAALOX 30 ML SUSP *UDC PO PRN (20:15)
[2019-03-21] MEDS ORDERED: ACETAMINOPHEN TAB 650MG DOSE (2X325MG) PO PRN (20:15)
[2019-03-21] MEDS ORDERED: PERCOCET 5MG/325MG TAB PO PRN (20:30)
--- NOTE | 2019-03-21 20:36 | HPEPDOC ---
General Date of Admission Date of Service: Mar 21, 2019 Chief Complaint The patient is a 59-year-old female admitted with a reason for visit of Gen Medical Complaint. Source: Patient, Family Exam Limitations: Other (pt refused) Timing/Duration: Other (years) Severity: Moderate History of Present Illness Ms. Pleitez is a 59 years old woman who was sent to ER by her neurologist for IV antibiotic for treatment of neurological lyme disease. Apparently pt has been having neck pain, facial numbness and tingling of the extremities for over a year. Lyme screening test was positive. Pt refused complete history, ROS, physical examination and LP. Pt agrees for overnight stay int [facility] for PICC lines and outpatient antibiotic arrangement. The only information provided to me by the pt and : neck p ain for two years. Rest of the info obtained from ER MD. Vitals are good with moderately elevated BP; afebrile. Mental status appeared normal; not in distress. Head CT: normal. CXR: normal. Home Medications Scheduled Coenzyme Q10 (Co Q10 Maximum Strength) 200 Mg Cap, 200 MG PO DAILY, (Reported) Levocetirizine Dihydrochloride (Levocetirizine Dihydrochloride) 5 Mg Tab, 5 MG PO DAILY, (Reported) Lisinopril (Prinivil) 10 Mg Tab, 10 MG PO BID, (Reported) Metoprolol Tartrate (Metoprolol Tartrate) 25 Mg Tab, 50 MG PO DAILY, (Reported) Multivitamins (Thera M Plus Tablet) 1 Tab Tab, 1 TAB PO QAM, (Reported) Pregabalin (Lyrica) 150 Mg Cap, 150 MG PO BID, (Reported) Simvastatin (Simvastatin) 20 Mg Tab, 20 MG PO QHS, (Reported) Vitamin B Complex/Folic Acid (B-Complex Tablet) 0.4 Mg Tablet, 1 TAB PO DAILY, (Reported) Scheduled PRN Albuterol Sulfate (Proair Hfa) 108 Mcg/Act Aer, 2 PUFF INH BID PRN for SHORTNESS OF BREATH, (Reported) Carisoprodol (Soma) 350 Mg Tab, 350 MG PO QIDP PRN for PAIN, (Reported) Eszopiclone (Eszopiclone) 2 Mg Tablet, 2 MG PO QHS PRN for INSOMNIA, (Reported) Oxycodone HCl/Acetaminophen (Oxycodone-Acetaminophen 5-325) 1 Tab Tab, 1 TAB PO Q4HP PRN for PAIN, (Reported) Miscellaneous Medications Cholecalciferol (Vitamin D3) (Vitamin D3) 10,000 Unit Capsule, 10,000 UNIT PO, (Reported) Allergies Coded Allergies: Penicillins (Verified Allergy, Severe, STOPS BREATHING, 03/21/19) bee venom protein (honey bee) (Verified Allergy, Severe, ANAPHYLAXIS, 03/21/19) clindamycin (Verified Allergy, Severe, SWELLING, 03/21/19) codeine (Verified Allergy, Severe, STOPS BREATHING, 03/21/19) morphine (Verified Allergy, Severe, BREATHING DIFFICULITY, 03/21/19) bacitracin (Verified Allergy, Intermediate, HIVES, 03/21/19) erythromycin base (Verified Allergy, Unknown, 03/21/19) NSAIDS (Non-Steroidal Anti-Inflamma (Verified Adverse Reaction, Inter mediate, SEVERE GI DISTRESS, 03/21/19) aspirin (Verified Adverse Reaction, Intermediate, BLEEDING ULCERS, 03/21/19) bupropion (Verified Adverse Reaction, Intermediate, PSYCOSIS, 03/21/19) celecoxib (Verified Adverse Reaction, Intermediate, PASSES BLOOD, 03/21/19) lovastatin (Verified Adverse Reaction, Intermediate, INCREASES LIVER ENZYMES, 03/21/19) meperidine (Verified Adverse Reaction, Intermediate, INCREASED AGITATION, 03/21/19) sulfamethoxazole (Verified Adverse Reaction, Intermediate, SEVERE GI DISTRESS, 03/21/19) trimethoprim (Verified Adverse Reaction, Intermediate, SEVERE GI DISTRESS, 03/21/19) varenicline (Verified Adverse Reaction, Intermediate, INCREASED PSYCOSIS, 03/21/19) venlafaxine (Verified Adverse Reaction, Intermediate, TREMORS, 03/21/19) Past Medical History Medical History Cardiac Arrhythmia Surgical History Lipoma removal, Bone graft removal, Uterine ablation, Cervical polyp removal Family History Significant Family History: No pertinent family hx Social History * Smoker: current smoker A-FIB/CHADSVASC A-FIB History Current/History of A-Fib/PAF?: No Review of Systems Other systems Pt refused ROS Physical Examination General Exam: Positive: Alert, No Acute Distress Psych Exam: Positive: Mental status NL Other physical findings Pt refused physical examination Vital Signs Vital Signs Date Time Temp Pulse Resp B/P (MAP) Pulse Ox O2 Delivery O2 Flow Rate FiO2 03/21/19 19:26 70 16 172/88 (116) 96 Room Air 03/21/19 14:29 98.4 Laboratory Data Labs 24H Laboratory Tests 2 03/21/19 15:46: Immature Granulocyte % (Auto) 0.3, White Blood Count 7.5, Red Blood Count 4.21, Hemoglobin 13.2, Hematocrit 37.1, Mean Corpuscular Volume 88.1, Mean Corpuscular Hemoglobin 31.4, Mean Corpuscular Hemoglobin Concent 35.6, Red Cell Distribution Width 11.9, Platelet Count 217, Neutrophils (%) (Auto) 45.0, Lymphocytes (%) (Auto) 46.2H, Monocytes (%) (Auto) 6.7H, Eosinophils (%) (Auto) 1.5, Basophils (%) (Auto) 0.3, Neutrophils # (Auto) 3.4, Lymphocytes # (Auto) 3.5, Monocytes # (Auto) 0.5, Eosinophils # (Auto) 0.1, Basophils # (Auto) 0.0, Nucleated Red Blood Cells % (auto) 0.0, Erythrocyte Sedimentation Rate 4, Anion Gap 9, Gl omerular Filtration Rate > 60.0, Blood Urea Nitrogen 6L, Creatinine 0.74, Sodium Level 127L, Potassium Level 3.8, Chloride Level 92L, Carbon Dioxide Level 26, Calcium Level 9.2, Aspartate Amino Transf (AST/SGOT) 30, Alanine Aminotransferase (ALT/SGPT) 31, Alkaline Phosphatase 77, Total Bilirubin 0.3, Total Protein 6.2L, Albumin 3.8, C-Reactive Protein, Quantitative 0.64H, Albumin/Globulin Ratio 1.58 CBC/BMP Laboratory Tests 03/21/19 15:46 Red Blood Count 4.21, Mean Corpuscular Volume 88.1, Mean Corpuscular Hemoglobin 31.4, Mean Corpuscular Hemoglobin Concent 35.6, Red Cell Distribution Width 11.9, Neutrophils (%) (Auto) 45.0, Lymphocytes (%) (Auto) 46.2 H, Monocytes (%) (Auto) 6.7 H, Eosinophils (%) (Auto) 1.5, Basophils (%) (Auto) 0.3, Neutrophils # (Auto) 3.4, Lymphocytes # (Auto) 3.5, Monocytes # (Auto) 0.5, Eosinophils # (Auto) 0.1, Basophils # (Auto) 0.0, Calcium Level 9.2, Aspartate Amino Transf (AST/SGOT) 30, Alanine Aminotransferase (ALT/SGPT) 31, Alkaline Phosphatase 77, Total Bilirubin 0.3, Total Protein 6.2 L, Albumin 3.8 Microbiology Microbiology 03/21/19 Blood Culture, Received Pending 03/21/19 Blood Culture, Received Pending Assessment/Plan Neurological Lyme Disease, 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) - Keep on observation overnight - PICC in the morning - Rocephin 2 gram IV daily for 2-4 weeks - D/C home tomorrow after PICC line insertion and arrangement of outpatient IV antibiotic - f/u with own neurologist on discharge Hx/o Cardiac Arrhythmia (not clear about specific) - EKG, Tele - Continue BB home dose Plan / VTE VTE Prophylaxis Ordered?: No VTE Exclusion Mechanical Proph: Low Risk for VTE VTE Exclusion Pharmacological: At Low Risk for VTE Plan Diet: Continue Current Activity: Continue Current Anticipated Discharge: Home (arrange for outpatient IV antibiotic therapy 2-4 weeks) MARELY US MD Mar 21, 2019 20:36
[2019-03-21] MEDS ORDERED: AFRISPR3 (20:45)
[2019-03-21] MEDS ORDERED: ATOR1TAB21 PO (20:45)
[2019-03-21] MEDS ORDERED: CO Q300C PO (20:45)
[2019-03-21] MEDS ORDERED: DULE100A INH (20:45)
[2019-03-21] MEDS ORDERED: METO1TAB7 PO (20:45)
[2019-03-21] MEDS ORDERED: PROAAER10 INH (20:45)
[2019-03-21] MEDS ORDERED: LORazepam 0.5 MG TAB PO SCH (21:00)
[2019-03-21 21:09] VITALS: BP 146/70
--- NOTE | 2019-03-22 07:34 | REP ---
CT BRAIN WITHOUT IV CONTRAST: CT brain was performed without IV contrast. Ventricles are normal in size and position with no midline shift or mass effect. Mciknney-white differentiation is well maintained. There is no evidence of acute intracranial hemorrhage or extra-axial fluid collection. Bone window examination is unremarkable. IMPRESSION: Negative non-contrast CT brain. Electronically Signed by Dallas Mckinney MD 03/23/2019 09:46 A
--- NOTE | 2019-03-22 07:37 | REP ---
CHEST, SINGLE VIEW: There is no evidence of acute infiltrate. No pleural effusion is seen. The heart is normal in size. The mediastinal silhouette is unremarkable. The visualized osseous structures are intact. IMPRESSION: No acute pulmonary disease. Electronically Signed by Dallas Mckinney MD 03/23/2019 09:47 A
[2019-03-22] MEDS ORDERED: cefTRIAXone SOD 2 GM in D5W MINI-BAG PLUS 50 ML IV SCH (19:00)
--- NOTE | 2019-03-22 21:19 | ECGEPIP ---
[facility] - ED Test Date: 2019-03-21 Pat Name: SHERRI BUSH Department: Room: 01[facility] Gender: Female Committee Member: : [id number] Requested By: DAO Jacques Order Number: [id number] Reading MD: Dao Hernández Measurements Intervals [place]rott Rate: 66 P: 66 WI: 165 QRS: 71 QRSD: 117 T: 49 QT: 410 QTc: 431 Interpretive Statements SINUS RHYTHM INCOMPLETE RIGHT BUNDLE BRANCH BLOCK Comparison tracing not on file Electronically Signed on 03-22-2019 21:19:21 EDT by Dao Hernández
== END 2019-03-21 22:04 | disposition left against medical advice (07) ==
LOC: M ED 14:27 → M ED INP 14:28
PROVIDERS: ADMIT Internal Medicine; ATTEND Internal Medicine
DX: A69.22 Other neurologic disorders in Lyme disease (principal); R29.6 Repeated falls; M54.2 Cervicalgia; F17.210 Nicotine dependence, cigarettes, uncomplicated; Z91.030 Bee allergy status; Z88.0 Allergy status to penicillin; Z88.2 Allergy status to sulfonamides; Z88.5 Allergy status to narcotic agent; Z88.1 Allergy status to other antibiotic agents; Z88.8 Allergy status to other drugs, medicaments and biological substances
CPT/HCPCS: 70450; 71045; 80053; 85025; 85652; 86140; 87040; 93005; 94640; 96365; 96366; 96375; 99284; J0696; J1200; J2405

== ENCOUNTER → 2019-04-22 | Outpatient (REF) | payer OTHER ==
[~2019-04-22] MED LIST changes: +AFRISPR3; +ATOR1TAB21 PO; +B-COTAB10 PO; +CO Q300C PO; +DULE100A INH; +ESZO1TAB39 PO; +METO1TAB7 PO; +VITA1CAP14 PO
[2019-04-22 15:57] LABS: ALBUMIN 4.1 GM/DL (3.2-5.2); ALT/SGPT 26 U/L (12-78); BILIRUBIN,TOTAL 0.2 MG/DL (0.2-1.0); BLOOD UREA NITROGEN 6 MG/DL (7-18); CALCIUM LEVEL 9.6 MG/DL (8.5-10.1); CARBON DIOXIDE LEVEL 28 MEQ/L (21-32); CHLORIDE LEVEL 103 MEQ/L (98-107); CREATININE FOR GFR 0.78 MG/DL (0.55-1.30); GLOMERULAR FILTRATION RATE > 60.0 (>51); GLUCOSE, FASTING 112 MG/DL (70-100); POTASSIUM SERUM 3.8 MEQ/L (3.5-5.1); SODIUM LEVEL 139 MEQ/L (136-145); TOTAL PROTEIN 6.9 GM/DL (6.4-8.2)
== END ==
LOC: M LABDRAW1 14:21
PROVIDERS: ATTEND Psychiatry & Neurology Neurology
DX: A69.20 Lyme disease, unspecified (principal); Z79.899 Other long term (current) drug therapy

== ENCOUNTER → 2019-11-18 | Outpatient (CLI) | payer BC, OTHER ==
[~2019-11-18] MED LIST changes: -SIMV20TA2 PO; +SIMV20TA22 PO
[2019-11-18 16:23] LABS: BASO # 0.1 10^3/uL (0.0-0.2); BASO % 0.9 % (0.0-1.0); EOS # 0.1 10^3/uL (0.0-0.5); EOS % 2.4 % (0.0-3.0); HEMATOCRIT 40.3 % (36.0-47.0); HEMOGLOBIN 13.9 g/dl (12.0-15.5); LYMPH # 2.5 10^3/uL (1.5-5.0); MEAN CORPUSCULAR HEMOGLOBIN 31.2 pg (27.0-33.0); MEAN CORPUSCULAR HGB CONC 34.5 g/dl (32.0-36.5); MEAN CORPUSCULAR VOLUME 90.6 fl (80.0-96.0); MONO # 0.5 10^3/uL (0.0-0.8); MONO % 8.4 % (0.0-5.0); NEUTROPHILS # 2.7 10^3/uL (1.5-8.5); NEUTROPHILS % 46.1 % (36.0-66.0); PLATELET COUNT, AUTOMATED 227 10^3/uL (150-450); RED BLOOD COUNT 4.45 10^6/uL (4.00-5.40); WHITE BLOOD COUNT 5.9 10^3/uL (4.0-10.0)
[2019-11-18 16:45] LABS: C REACTIVE PROTEIN QUANTITATIV < 0.30 MG/DL (0.00-0.30)
[2019-11-18 19:39] LABS: ERYTHROCYTE SEDIMENTATION RATE 5 mm/hr (0-30)
[2019-11-19 13:46] LABS: CPK CREATINE PHOSPHOKINASE 247 U/L (26-192); RHEUMATOID FACTOR QUANT 44.9 IU/ML (<15.0)
== END ==
LOC: M LAB 15:33
PROVIDERS: ATTEND Internal Medicine
DX: R76.8 Other specified abnormal immunological findings in serum (principal); R20.2 Paresthesia of skin

== ENCOUNTER → 2020-07-11 | Outpatient (CLI) | payer BC, OTHER ==
[~2020-07-11] MED LIST changes: -AMIT25TA PO; +AMIT25TA17 PO; -ESZO1TAB39 PO; +ESZO1TAB8 PO
--- NOTE | 2020-07-11 15:29 | REP ---
INDICATION: RUQ ABD PAIN NAUSEA COMPARISON: None. TECHNIQUE: Real time maldonado scale ultrasound examination using curved array transducer. FINDINGS: Liver is normal in contour, size, and echogenicity without focal hepatic lesions identified. Pancreas is incompletely evaluated due to interposed bowel gas. The gallbladder is normal and without gallstones, wall thickening, or pericholecystic fluid. No biliary ductal dilatation is appreciated and the common bile duct measures 2 mm diameter. Right kidney is normal in reniform shape without hydronephrosis and measures 10.5 x 5.2 x 5.3 cm. No ascites in the visualized right upper quadrant. IMPRESSION: Normal limited right upper quadrant ultrasound <Electronically signed by Patrick Akins > 07/11/20 [id number]
== END ==
LOC: M RAD 07:52
PROVIDERS: ATTEND Physician Assistant Medical
DX: R10.11 Right upper quadrant pain (principal)

== ENCOUNTER → 2020-08-16 | Outpatient (REF) | payer OTHER, BC ==
[2020-08-16 19:02] LABS: HEPATITIS B SURFACE ANTIGEN NEGATIVE (NEGATIVE); HEPATITIS C VIRUS ABY INDEX 0.1 INDEX (<0.8)
[2020-08-18 23:06] LABS: HEPATITIS B CORE ANTIBODY IGG Negative (Negative)
== END ==
LOC: M LAB REF 16:16
PROVIDERS: ATTEND Physician Assistant Medical
DX: M05.741 Rheumatoid arthritis with rheumatoid factor of right hand without organ or systems involvement (principal)

== ENCOUNTER → 2020-10-09 | Outpatient (REF) | payer OTHER, BC | LOC: M LAB REF 16:16 | PROVIDERS: ATTEND Physician Assistant Medical | DX: R06.02 Shortness of breath (principal) ==

== ENCOUNTER → 2020-10-16 | Outpatient (CLI) | payer BC, OTHER ==
--- NOTE | 2020-10-16 14:34 | REP ---
INDICATION: SOB COMPARISON: 03/21/2019 TECHNIQUE: PA and lateral. FINDINGS: The mediastinum and cardiac silhouette are normal. The lung keen demonstrate increased interstitial markings without acute consolidation, effusion, or pneumothorax. The skeletal structures are intact and normal. IMPRESSION: No acute cardiopulmonary process. <Electronically signed by Patrick Akins > 10/16/20 [id number]
== END ==
LOC: M WUC 14:08
PROVIDERS: ATTEND Internal Medicine
DX: R06.02 Shortness of breath (principal)

== ENCOUNTER → 2020-11-09 | Outpatient (CLI) | payer BC ==
--- NOTE | 2020-11-09 15:44 | REP ---
INDICATION: PAIN COMPARISON: None. TECHNIQUE: AP and frog-lateral views of the right hip FINDINGS: Mild arthritic degenerative changes include subtle increased sclerosis to the acetabulum with mild joint space narrowing. No further overt osteoarthritic or significant degenerative changes are appreciated. No evidence for acute or healed injury. Surrounding soft tissues are normal. IMPRESSION: Mild arthritic degenerative changes. <Electronically signed by Patrick Akins > 11/09/20 [id number]
== END ==
LOC: M WUC 14:41
PROVIDERS: ATTEND Physician Assistant Medical
DX: M16.11 Unilateral primary osteoarthritis, right hip (principal); M25.551 Pain in right hip

== ENCOUNTER → 2021-01-18 | Outpatient (CLI) | payer BC, OTHER ==
--- NOTE | 2021-01-18 15:57 | REP ---
INDICATION: PLANTAR FASCIAL FIBROMATOSIS. COMPARISON: None. TECHNIQUE: Multiple sequences obtained in the axial, coronal and sagittal planes. FINDINGS: There is mild increased signal and thickening in the proximal plantar tendon. The adjacent inferior calcaneus demonstrates reactive marrow edema. There is moderate degree of soft tissue edema surrounding the proximal plantar tendon. The findings are compatible plantar fasciitis, and secondary reactive osseous changes. Otherwise the tendons and ligaments at the ankle are intact. Arthritic changes are seen at the joint between the navicular and adjacent medial cuneiform. There is subchondral marrow edema and cystic change of a moderate degree in the navicular bone, with mild subchondral marrow edema in the medial cuneiform. There is degenerative change at the 1st metatarsophalangeal joint with subchondral marrow edema in the distal 1st metatarsal. There is a small joint effusion at the 1st metatarsophalangeal joint. The flexor and extensor tendons of the foot are intact with no evidence of significant tenosynovitis. No ganglion cyst is seen. Sinus tarsi is unremarkable. IMPRESSION: Findings compatible with moderate degree of plantar fasciitis and moderate reactive edematous changes in the marrow of the inferior calcaneus. Degenerative changes of the 1st metatarsophalangeal joint as well as the joint between the navicular and medial cuneiform. <Electronically signed by Dallas Mckinney > 01/18/21 [id number]
== END ==
LOC: M PLAIMG 14:25
PROVIDERS: ATTEND Physician Assistant
DX: M72.2 Plantar fascial fibromatosis (principal)

== ENCOUNTER → 2021-02-01 | Outpatient (REF) | payer BC, OTHER | LOC: M WUC 19:22 | PROVIDERS: ATTEND Physician Assistant | DX: N39.0 Urinary tract infection, site not specified (principal) ==

== ENCOUNTER → 2021-03-15 | Outpatient (CLI) | payer BC, OTHER ==
--- NOTE | 2021-03-15 14:06 | REP ---
INDICATION: GASTROPARESIS. COMPARISON: None. TECHNIQUE/RADIOTRACER AND DOSE: Following the intravenous administration of 1.05 mCi technetium 99 M sulfur colloid in 2 scrambled eggs and 6 oz of water, multiple images of the upper abdomen are performed in the anterior and posterior projections for 90 minutes. FINDINGS: The gastric activity is measured. At the end of 90 minutes 58% of the ingested activity has emptied from the stomach. The T1/2 is 78 minutes which is normal. IMPRESSION: Normal gastric emptying time. <Electronically signed by Dallas Mckinney > 03/15/21 [id number]
== END ==
LOC: M RAD 11:59
PROVIDERS: ATTEND Internal Medicine Gastroenterology
DX: K31.84 Gastroparesis (principal)
CPT/HCPCS: 78264; A9541

== ENCOUNTER → 2021-05-09 | Outpatient (CLI) | payer BC, OTHER | LOC: M WUC 15:01 | PROVIDERS: ATTEND Psychiatry & Neurology Neurology | DX: M54.10 Radiculopathy, site unspecified (principal) ==

== ENCOUNTER → 2021-05-09 | Outpatient (CLI) | payer BC, OTHER ==
--- NOTE | 2021-05-09 16:19 | REP ---
INDICATION: PAIN. COMPARISON: 07/05/2011 TECHNIQUE: Four views FINDINGS: There is chronic change seen involving the midfoot region with navicular and 1st cuneiform fusion. There is a plantar calcaneal heel spur which has increased slightly in size from the prior exam. There is no acute fracture or destructive osseous lesion. Degenerative changes seen throughout the foot. IMPRESSION: No acute osseous abnormality. <Electronically signed by Levi Ortiz > 05/09/21 [id number]
== END ==
LOC: M WUC 14:50
PROVIDERS: ATTEND Physician Assistant
DX: M25.571 Pain in right ankle and joints of right foot (principal); M77.30 Calcaneal spur, unspecified foot

== ENCOUNTER → 2021-11-15 | Outpatient (CLI) | payer BC, OTHER ==
[2021-11-15 15:37] LABS: HEMATOCRIT 41.3 % (36.0-47.0); HEMOGLOBIN 13.4 g/dl (12.0-15.5); MEAN CORPUSCULAR HGB CONC 32.4 g/dl (32.0-36.5); MEAN CORPUSCULAR VOLUME 89.4 fl (80.0-96.0); PLATELET COUNT, AUTOMATED 240 10^3/uL (150-450); RED BLOOD COUNT 4.62 10^6/uL (4.00-5.40); WHITE BLOOD COUNT 4.4 10^3/uL (4.0-10.0)
[2021-11-15 15:57] LABS: ALBUMIN 3.9 GM/DL (3.2-5.2); ALT/SGPT 34 U/L (12-78); BILIRUBIN,DIRECT < 0.1 MG/DL (0.0-0.2); BILIRUBIN,TOTAL 0.3 MG/DL (0.2-1.0); BLOOD UREA NITROGEN 8 MG/DL (7-18); CALCIUM LEVEL 9.2 MG/DL (8.8-10.2); CARBON DIOXIDE LEVEL 30 MEQ/L (21-32); CHLORIDE LEVEL 108 MEQ/L (98-107); CHOLESTEROL LEVEL 240 MG/DL (<200); CHOLESTEROL RISK RATIO 4.528 (<5); CREATININE FOR GFR 0.82 MG/DL (0.55-1.30); GLOMERULAR FILTRATION RATE > 60.0 (>45); GLUCOSE, FASTING 88 MG/DL (70-100); HDL CHOLESTEROL 53 MG/DL (>40); LDL CHOLESTEROL 148 MG/DL (<100); MAGNESIUM LEVEL 2.3 MG/DL (1.8-2.4); NON-HDL-C 187 MG/DL; NT-PRO BNP 75 PG/ML (<125); POTASSIUM SERUM 3.8 MEQ/L (3.5-5.1); SODIUM LEVEL 142 MEQ/L (136-145); THYROID STIMULATING HORMONE 0.302 uIU/ML (0.358-3.740); TOTAL PROTEIN 6.7 GM/DL (6.4-8.2); TRIGLYCERIDES LEVEL 197 MG/DL (<150)
== END ==
LOC: M WUC 11:47
PROVIDERS: ATTEND Physician Assistant
DX: R60.0 Localized edema (principal); R06.02 Shortness of breath; R00.2 Palpitations; E78.00 Pure hypercholesterolemia, unspecified

== ENCOUNTER → 2021-11-20 | Outpatient (REF) | payer BC, OTHER ==
[2021-11-20 17:37] LABS: C REACTIVE PROTEIN QUANTITATIV 0.44 MG/DL (0.00-0.30); FREE T3 2.9 PG/ML (2.2-4.0)
[2021-11-20 17:40] LABS: THYROGLOBULIN ANTIBODY < 15.0 U/ML (<60.0); THYROID PEROXIDASE ANTIBODY 33.3 U/ML (<60.0)
== END ==
LOC: M LAB REF 16:11
PROVIDERS: ATTEND Physician Assistant Medical
DX: R53.83 Other fatigue (principal); R63.5 Abnormal weight gain

== ENCOUNTER → 2021-12-07 | Outpatient (CLI) | payer BC, OTHER | LOC: M RAD 12:38 | PROVIDERS: ATTEND Physician Assistant Medical | DX: R60.0 Localized edema (principal); R94.6 Abnormal results of thyroid function studies; E04.2 Nontoxic multinodular goiter ==

== ENCOUNTER → 2022-04-18 | Outpatient (CLI) | payer BC, OTHER ==
[~2022-04-18] MED LIST changes: -DULE200A IN; +MOME13HF7 IN
== END ==
LOC: M PLAIMG 10:30
PROVIDERS: ATTEND Physician Assistant Medical
DX: M54.50 Low back pain, unspecified (principal)

== ENCOUNTER → 2022-05-06 | Outpatient (CLI) | payer BC, OTHER ==
[~2022-05-06] MED LIST changes: +PROHANCE 279.3MG/ML 15ML VIAL As Ordered ONE
== END ==
LOC: M RAD 09:29
PROVIDERS: ATTEND Physician Assistant Medical
DX: R93.89 Abnormal findings on diagnostic imaging of other specified body structures (principal)
CPT/HCPCS: 72157; A9576

== ENCOUNTER → 2023-01-23 | Day surgery (SDC) | payer BC, OTHER ==
[~2023-01-23] VITALS: Ht 172.7 cm; Wt 68.8 kg
[~2023-01-23] MED LIST changes: +ACETAMINOPHEN 1000MG 100ML IV BAG As Ordered ONE; +ALBU2.5V10 INH; -AMIT25TA17 PO; +AMIT25TA19 PO; -CO Q300C PO; +CO Q300C2 PO; -DULE100A INH; +LIDOCAINE 2% 100MG/5ML SDV (FOR ANES.) As Ordered ONE; +LR 1,000 ML IV SCH; +METOCLOPRAMIDE INJ 10MG/2ML VIAL As Ordered ONE; +MIDAZOLAM INJ 2MG/2ML VIAL As Ordered ONE; +MOME13HF8 INH; +NORCO, ANEXSIA 5/325MG TABLET (HYDROcodone/ACETAMINOPHEN) PO PRN; +ONDANSETRON 4MG 2ML VIAL As Ordered ONE; +ONDANSETRON 4MG 2ML VIAL IV PRN; -PROHANCE 279.3MG/ML 15ML VIAL As Ordered ONE; +REPA140I2 SC; +ROCURONIUM BROMIDE 50MG/5ML VIAL As Ordered ONE; +SUGAMMADEX SODIUM 500 MG/5 ML VIAL (BRIDION) As Ordered ONE; +fentaNYL 100 MCG/2 ML INJECTION As Ordered ONE; +propofoL 200 MG/20 ML VIAL As Ordered ONE
[2023-01-23] MEDS: fentaNYL 100 MCG/2 ML INJECTION IV PRN ×8 (12:10→13:14)
[2023-01-23] MEDS: oxyCODONE 5MG TAB PO PRN ×2 (12:40→13:10)
[2023-01-23] MEDS: HYDROMORPHONE HCL 0.5 MG/ 0.5 ML SYRINGE IV PRN ×11 (12:40→14:31)
[2023-01-23] MEDS: LABETALOL 100MG/20ML VIAL IV PRN ×3 (12:51→13:06)
[2023-01-23 13:06] VITALS: BP 185/93
[2023-01-23 15:10] VITALS: BP 175/86; TEMP 98.9; O2SAT 96
== END | disposition home or self-care (01) ==
LOC: M SDC 08:54
PROVIDERS: ATTEND Surgery
DX: K81.1 Chronic cholecystitis (principal); K21.9 Gastro-esophageal reflux disease without esophagitis; G43.909 Migraine, unspecified, not intractable, without status migrainosus; J45.909 Unspecified asthma, uncomplicated; Z88.6 Allergy status to analgesic agent; Z91.030 Bee allergy status; Z88.5 Allergy status to narcotic agent; Z91.040 Latex allergy status; Z88.8 Allergy status to other drugs, medicaments and biological substances
CPT/HCPCS: 47562; 88304; J0131; J0665; J1100; J1170; J1920; J2250; J2405; J2765; J3010

== ENCOUNTER → 2023-07-17 | Outpatient (CLI) | payer BC, OTHER ==
[~2023-07-17] MED LIST changes: -ACETAMINOPHEN 1000MG 100ML IV BAG As Ordered ONE; -LIDOCAINE 2% 100MG/5ML SDV (FOR ANES.) As Ordered ONE; -LR 1,000 ML IV SCH; -METOCLOPRAMIDE INJ 10MG/2ML VIAL As Ordered ONE; -MIDAZOLAM INJ 2MG/2ML VIAL As Ordered ONE; -NORCO, ANEXSIA 5/325MG TABLET (HYDROcodone/ACETAMINOPHEN) PO PRN; -ONDANSETRON 4MG 2ML VIAL As Ordered ONE; -ONDANSETRON 4MG 2ML VIAL IV PRN; -ROCURONIUM BROMIDE 50MG/5ML VIAL As Ordered ONE; -SUGAMMADEX SODIUM 500 MG/5 ML VIAL (BRIDION) As Ordered ONE; -fentaNYL 100 MCG/2 ML INJECTION As Ordered ONE; -propofoL 200 MG/20 ML VIAL As Ordered ONE
== END ==
LOC: M WHC 14:08
PROVIDERS: ATTEND Physician Assistant Medical
DX: E04.2 Nontoxic multinodular goiter (principal)

== ENCOUNTER → 2023-08-08 | Outpatient (CLI) | payer BC, OTHER | LOC: M RAD 08:09 | PROVIDERS: ATTEND Physician Assistant Medical | DX: R91.8 Other nonspecific abnormal finding of lung field (principal); E04.1 Nontoxic single thyroid nodule ==

== ENCOUNTER → 2023-09-08 | Outpatient (REF) | payer BC, OTHER | LOC: M LAB REF 16:49 | PROVIDERS: ATTEND Internal Medicine | DX: N39.0 Urinary tract infection, site not specified (principal) ==

== ENCOUNTER → 2023-09-11 | Outpatient (CLI) | payer BC | LOC: M RAD 14:35 | PROVIDERS: ATTEND Internal Medicine | DX: R35.0 Frequency of micturition (principal); R30.0 Dysuria ==

== ENCOUNTER → 2024-01-07 | Outpatient (REF) | payer OTHER, BC ==
[2024-01-07 17:11] LABS: C REACTIVE PROTEIN QUANTITATIV < 0.40 MG/DL (<1.0)
[2024-01-08 14:27] LABS: FREE T3 4.1 PG/ML (2.3-4.2)
== END ==
LOC: M LAB REF 16:21
PROVIDERS: ATTEND Physician Assistant Medical
DX: M05.741 Rheumatoid arthritis with rheumatoid factor of right hand without organ or systems involvement (principal); E04.1 Nontoxic single thyroid nodule

== ENCOUNTER 2024-01-28 12:19 | Day surgery (SDC) | payer BC ==
[~2024-01-28] VITALS: Ht 175.3 cm; Wt 71.6 kg
[~2024-01-28 12:19] MED LIST changes: +CYCL-707 PO; +GABA600T4 PO; +PHENYLEPHRINE 10% OPHTH SOL 5ML OD PRN
[2024-01-28] MEDS: TROPICAMIDE 1% OPHTH SOLN 15ML OD SCH (13:26)
[2024-01-28] MEDS: ATROPINE SULFATE 1% OPHTH SOLN 2ML BTL OD SCH (13:26)
[2024-01-28] MEDS: OFLOXACIN 0.3 % (OCUFLOX) OPTH SOL 5ML OD ONE (13:26)
[2024-01-28] MEDS: LIDOCAINE 3.5 % 1ML OPHTH TOPICAL GEL OU ONE (13:27)
[2024-01-28] MEDS: PHENYLEPHRINE 2.5% OPHTH SOL 2ML OD SCH (13:27)
[2024-01-28] MEDS ORDERED: MIDAZOLAM INJ 2MG/2ML VIAL As Ordered ONE (14:11)
[2024-01-28] MEDS ORDERED: fentaNYL 100 MCG/2 ML INJECTION As Ordered ONE (14:11)
[2024-01-28] MEDS: LIDOCAINE 1% SDV 5ML VIAL As Ordered ONE (14:26)
[2024-01-28] MEDS: CEFUROXIME 1MG/0.1ML INTRACAMERAL INJ As Ordered ONE (14:26)
[2024-01-28] MEDS: BSS IRRIG/VANCO(10MG)/TOBRA(5MG)/EPINEPH(1:1000-0.5CC)500ML BAG-ORONLY As Ordered ONE (14:26)
[2024-01-28 14:39] VITALS: BP 155/88; TEMP 97.1; O2SAT 96
== END 2024-01-28 14:57 | disposition home or self-care (01) ==
LOC: M SDC 12:19
PROVIDERS: ATTEND Ophthalmology
DX: H25.11 Age-related nuclear cataract, right eye (principal); J45.909 Unspecified asthma, uncomplicated; M06.9 Rheumatoid arthritis, unspecified; G43.909 Migraine, unspecified, not intractable, without status migrainosus; K21.9 Gastro-esophageal reflux disease without esophagitis; Z79.899 Other long term (current) drug therapy; Z79.620 Long term (current) use of immunosuppressive biologic; Z87.891 Personal history of nicotine dependence; Z90.89 Acquired absence of other organs; Z88.5 Allergy status to narcotic agent; Z88.8 Allergy status to other drugs, medicaments and biological substances; Z88.6 Allergy status to analgesic agent; Z91.030 Bee allergy status; Z88.0 Allergy status to penicillin; Z88.2 Allergy status to sulfonamides
CPT/HCPCS: 66984; J0697; J2250; J3010; V2632

== ENCOUNTER 2024-02-04 09:43 | Day surgery (SDC) | payer BC ==
[~2024-02-04] VITALS: Ht 175.3 cm; Wt 71.7 kg
[~2024-02-04 09:43] MED LIST changes: +MIDAZOLAM INJ 2MG/2ML VIAL As Ordered ONE; -PHENYLEPHRINE 10% OPHTH SOL 5ML OD PRN; +PHENYLEPHRINE 10% OPHTH SOL 5ML OS PRN; +fentaNYL 100 MCG/2 ML INJECTION As Ordered ONE
[2024-02-04] MEDS: PHENYLEPHRINE 2.5% OPHTH SOL 2ML OS SCH (10:22)
[2024-02-04] MEDS: TROPICAMIDE 1% OPHTH SOLN 15ML OS SCH (10:22)
[2024-02-04] MEDS: ATROPINE SULFATE 1% OPHTH SOLN 2ML BTL OS SCH (10:22)
[2024-02-04] MEDS: OFLOXACIN 0.3 % (OCUFLOX) OPTH SOL 5ML OS ONE (10:22)
[2024-02-04] MEDS: LIDOCAINE 3.5 % 1ML OPHTH TOPICAL GEL OU ONE (10:50)
[2024-02-04] MEDS: BSS IRRIG/VANCO(10MG)/TOBRA(5MG)/EPINEPH(1:1000-0.5CC)500ML BAG-ORONLY As Ordered ONE (11:13)
[2024-02-04] MEDS: LIDOCAINE 1% SDV 5ML VIAL As Ordered ONE (11:13)
[2024-02-04] MEDS: CEFUROXIME 1MG/0.1ML INTRACAMERAL INJ As Ordered ONE (11:17)
[2024-02-04 11:25] VITALS: BP 177/99; TEMP 97.6; O2SAT 95
== END 2024-02-04 11:46 | disposition home or self-care (01) ==
LOC: M SDC 09:43
PROVIDERS: ATTEND Ophthalmology
DX: H25.12 Age-related nuclear cataract, left eye (principal); J45.909 Unspecified asthma, uncomplicated; K21.9 Gastro-esophageal reflux disease without esophagitis; Z79.899 Other long term (current) drug therapy; Z87.891 Personal history of nicotine dependence; Z88.8 Allergy status to other drugs, medicaments and biological substances; Z88.5 Allergy status to narcotic agent; Z88.1 Allergy status to other antibiotic agents; Z88.6 Allergy status to analgesic agent; Z88.2 Allergy status to sulfonamides
CPT/HCPCS: 66984; J0697; J2250; J3010; V2632

== ENCOUNTER → 2024-08-17 | Outpatient (CLI) | payer BC ==
[~2024-08-17] MED LIST changes: +GABA-1490 PO; -GABA600T4 PO; -MIDAZOLAM INJ 2MG/2ML VIAL As Ordered ONE; -PHENYLEPHRINE 10% OPHTH SOL 5ML OS PRN; -fentaNYL 100 MCG/2 ML INJECTION As Ordered ONE
== END ==
LOC: M EKG 13:30
PROVIDERS: ATTEND Physician Assistant
DX: Z53.21 Procedure and treatment not carried out due to patient leaving prior to being seen by health care provider (principal)

== ENCOUNTER → 2025-04-06 | Outpatient (CLI) | payer BC ==
[~2025-04-06] MED LIST changes: -AMBI10TA PO; +ZOLP-533 PO
== END ==
LOC: M PLAIMG 08:52
PROVIDERS: ATTEND Neurological Surgery
DX: M50.30 Other cervical disc degeneration, unspecified cervical region (principal); Z98.1 Arthrodesis status; M89.38 Hypertrophy of bone, other site; M50.20 Other cervical disc displacement, unspecified cervical region; M48.02 Spinal stenosis, cervical region; M25.78 Osteophyte, vertebrae; M47.812 Spondylosis without myelopathy or radiculopathy, cervical region

== ENCOUNTER → 2025-04-07 | Outpatient (CLI) | payer BC | LOC: M WHC 12:13 | PROVIDERS: ATTEND Physician Assistant Medical | DX: R60.0 Localized edema (principal) ==

== ENCOUNTER → 2025-06-28 | Outpatient (REF) | payer BC ==
[2025-06-28 17:26] LABS: INR 0.85
== END ==
LOC: M LAB REF 17:08
PROVIDERS: ATTEND Internal Medicine
DX: Z01.818 Encounter for other preprocedural examination (principal)